=== PATIENT | female | born 1945 | race Caucasian/White ===

== ENCOUNTER → 2016-12-24 | Outpatient (CLI) | payer MEDICARE, OTHER ==
[~2016-12-24] MED LIST: ACET325T14 PO; ALPRazolam 1MG TABLET ONE; BISA-49 PO; BISA10SU65 PR; CALC-112 PO; CALC-666 PO; CHOL10003 PO; CHOL2000 PO; CYAN100T PO; DOCU-30 PO; ERGO500017 PO; FERR220S14 PO/NG; FERR325T20 PO; FURO20TA3 PO; FURO80TA3 PO; FURO80TA77 PO; HYDR-3138 PO; HYDR-3342 PO; HYDR-3343 PO; HYDR200T5 PO; HYDR25TA6 PO; LOSA25TA2 PO; LOSA50TA2 PO; METO25TA35 PO; METO50TA82 PO; METR500T PO; MULT-257 PO; MULT-750 PO; MYCO500T3 PO; OMEP-110 PO; OXYC5TAB3 PO; POLY17PO5 PO; POTA20TA14 PO; PRED20TA PO; PREG150C PO; RANI150T4 PO; SENN1TAB7 PO; SIMV20TA3 PO; SPIR50TA2 PO; SULF1TAB24 PO; WARF2.5T73 PO; WARF2TAB PO; WARF5TAB PO; ZOLP5TAB6 PO; potassium PO
== END | disposition home or self-care (01) ==
LOC: CFH 12:08
PROVIDERS: ATTEND Pain Medicine Interventional Pain Medicine
DX: M41.86 Other forms of scoliosis, lumbar region (principal); M47.22 Other spondylosis with radiculopathy, cervical region; M51.16 Intervertebral disc disorders with radiculopathy, lumbar region; M51.14 Intervertebral disc disorders with radiculopathy, thoracic region; G89.29 Other chronic pain
CPT/HCPCS: 72141; 72146; 72148

== ENCOUNTER 2016-12-29 10:55 | Inpatient (IN) | payer MEDICARE, OTHER ==
[~2016-12-29] VITALS: Ht 162.6 cm; Wt 63.0 kg
[~2016-12-29 10:55] MED LIST changes: -ALPRazolam 1MG TABLET ONE
[2016-12-29] MEDS ORDERED: SODIUM CHLORIDE FLUSH 10ML SYR IVF ONE (11:00)
[2016-12-29] MEDS ORDERED: SIMV10TA3 PO (11:08)
[2016-12-29 11:26] LABS: HEMATOCRIT 33.6 % (34.6-47.8); HEMOGLOBIN 10.9 g/dL (11.7-16.4)
[2016-12-29 11:39] LABS: DAU SCREEN DISCLAIMER
[2016-12-29 11:51] LABS: ASPARTATE AMINO TRANSFERASE 11 U/L (15-37); BLOOD UREA NITROGEN 29 mg/dL (7-18)
[2016-12-29 12:14] LABS: IS PT STATUS REG ER OR PRE ER? YES
[2016-12-29] MEDS ORDERED: LEVOFLOXACIN ONE (13:27)
[2016-12-29] MEDS ORDERED: PMX ONE (13:27)
[2016-12-29] MEDS ORDERED: LEVOFLOXACIN/PMX 500MG/100ML 100 ML IV ONE (13:30)
[2016-12-29] MEDS ORDERED: SODIUM CHLORIDE 0.9% 1,000 ML IV SCH (14:49)
[2016-12-29] MEDS ORDERED: ONDANSETRON ODT 4 MG PO PRN (15:00)
[2016-12-29] MEDS ORDERED: DOCUSATE 100 MG CAPSULE PO PRN (15:00)
[2016-12-29] MEDS ORDERED: ACETAMINOPHEN 325 MG TABLET PO PRN (15:00)
[2016-12-29] MEDS ORDERED: BISACODYL 10 MG SUPP PR PRN (15:00)
[2016-12-29] MEDS ORDERED: ONDANSETRON 2MG/ML, 2ML IVPush PRN (15:00)
[2016-12-29] MEDS ORDERED: NS + 40MEQ KCL 1,000 ML IV SCH (15:30)
[2016-12-29 17:40] VITALS: BP 191/94
[2016-12-29] MEDS: hydrALAzine 20 MG/ML, 1ML IVPush PRN ×2 (17:40→23:47)
[2016-12-29 18:16] VITALS: BP 182/85
[2016-12-29 20:00] VITALS: BP 172/103
[2016-12-29] MEDS: CALCIUM CARBONATE 500 MG TABLET PO SCH (20:39)
[2016-12-29] MEDS: SIMVASTATIN 10 MG TABLET PO SCH (20:39)
[2016-12-29] MEDS: PREGABALIN 150 MG CAPSULE PO SCH (20:39)
[2016-12-29] MEDS: METOPROLOL TARTRATE 50 MG TABLET PO SCH (20:39)
[2016-12-29] MEDS: HYDROXYCHLOROQUINE 200 MG TABLET PO SCH (20:39)
[2016-12-29] MEDS: POTASSIUM CHLORIDE 40 MEQ in SODIUM CHLORIDE 0.45% 1,000 ML IV SCH (20:40)
[2016-12-29] MEDS: HEPARIN 5,000 UNITS/ML, 1ML SQ SCH (20:40)
[2016-12-29] MEDS ORDERED: FAMOTIDINE 20 MG TABLET PO SCH (21:00)
[2016-12-29 23:40] VITALS: BP 178/96
[2016-12-30 01:51] VITALS: BP 164/78
[2016-12-30] MEDS: HEPARIN 5,000 UNITS/ML, 1ML SQ SCH ×3 (05:10→21:34)
[2016-12-30 05:37] LABS: HEMATOCRIT 33.3 % (34.6-47.8); WHITE BLOOD COUNT 6.5 x10^3/uL (3.4-10)
[2016-12-30 05:57] LABS: BLOOD UREA NITROGEN 32 mg/dL (7-18)
[2016-12-30] MEDS: POTASSIUM CHLORIDE 40 MEQ in SODIUM CHLORIDE 0.45% 1,000 ML IV SCH ×2 (06:23→17:35)
[2016-12-30 09:27] VITALS: BP 174/95
[2016-12-30] MEDS ORDERED: CIPROFLOXACIN/PMX 400MG/200ML 200 ML IV SCH (10:00)
[2016-12-30] MEDS: CALCIUM CARBONATE 500 MG TABLET PO SCH ×2 (10:25→21:33)
[2016-12-30] MEDS: FAMOTIDINE 20 MG TABLET PO SCH (10:25)
[2016-12-30] MEDS: PREGABALIN 150 MG CAPSULE PO SCH ×2 (10:25→21:32)
[2016-12-30] MEDS: HYDROXYCHLOROQUINE 200 MG TABLET PO SCH ×2 (10:25→21:30)
[2016-12-30] MEDS: CHOLECALCIFEROL 1,000 UNIT TABLET PO SCH (10:26)
[2016-12-30] MEDS: FERROUS SULFATE 325 MG TABLET PO SCH (10:26)
[2016-12-30] MEDS: METOPROLOL TARTRATE 50 MG TABLET PO SCH ×2 (10:26→21:27)
[2016-12-30 14:54] VITALS: BP 184/96
[2016-12-30 20:23] VITALS: BP 175/73
[2016-12-30] MEDS: SIMVASTATIN 10 MG TABLET PO SCH (21:29)
[2016-12-31 01:35] VITALS: BP 175/73
[2016-12-31] MEDS: hydrALAzine 20 MG/ML, 1ML IVPush PRN (01:36)
[2016-12-31] MEDS: POTASSIUM CHLORIDE 40 MEQ in SODIUM CHLORIDE 0.45% 1,000 ML IV SCH (02:35)
[2016-12-31] MEDS: HEPARIN 5,000 UNITS/ML, 1ML SQ SCH ×3 (05:35→22:52)
[2016-12-31 08:03] VITALS: BP 167/79
[2016-12-31 09:14] LABS: BLOOD UREA NITROGEN 29 mg/dL (7-18)
[2016-12-31] MEDS: PREGABALIN 150 MG CAPSULE PO SCH ×2 (09:35→22:52)
[2016-12-31] MEDS: CHOLECALCIFEROL 1,000 UNIT TABLET PO SCH (09:37)
[2016-12-31] MEDS: METOPROLOL TARTRATE 50 MG TABLET PO SCH ×2 (09:37→22:52)
[2016-12-31] MEDS: FERROUS SULFATE 325 MG TABLET PO SCH (09:38)
[2016-12-31] MEDS: FAMOTIDINE 20 MG TABLET PO SCH (09:38)
[2016-12-31] MEDS: HYDROXYCHLOROQUINE 200 MG TABLET PO SCH ×2 (09:38→22:52)
[2016-12-31] MEDS: CALCIUM CARBONATE 500 MG TABLET PO SCH ×2 (09:38→22:52)
[2016-12-31] MEDS: CIPROFLOXACIN 500 MG TABLET PO SCH (10:00)
[2016-12-31] MEDS ORDERED: PHARMACY MAY ADJ FOR RENAL FX MC PRN (10:00)
[2016-12-31 13:46] VITALS: BP 169/79
[2016-12-31 22:50] VITALS: BP 145/93
[2016-12-31] MEDS: SIMVASTATIN 10 MG TABLET PO SCH (22:52)
[2017-01-01 00:58] VITALS: BP 150/94
[2017-01-01 05:54] LABS: BLOOD UREA NITROGEN 26 mg/dL (7-18)
[2017-01-01 07:12] VITALS: BP 173/90
[2017-01-01] MEDS: FERROUS SULFATE 325 MG TABLET PO SCH (09:00)
[2017-01-01] MEDS: HEPARIN 5,000 UNITS/ML, 1ML SQ SCH ×2 (09:21→17:23)
[2017-01-01] MEDS: CHOLECALCIFEROL 1,000 UNIT TABLET PO SCH (09:22)
[2017-01-01] MEDS: METOPROLOL TARTRATE 50 MG TABLET PO SCH ×2 (09:22→22:57)
[2017-01-01] MEDS: FAMOTIDINE 20 MG TABLET PO SCH (09:22)
[2017-01-01] MEDS: CIPROFLOXACIN 500 MG TABLET PO SCH (09:22)
[2017-01-01] MEDS: PREGABALIN 150 MG CAPSULE PO SCH ×2 (09:22→22:56)
[2017-01-01] MEDS: CALCIUM CARBONATE 500 MG TABLET PO SCH ×2 (09:23→22:56)
[2017-01-01] MEDS: HYDROXYCHLOROQUINE 200 MG TABLET PO SCH ×2 (09:23→22:57)
[2017-01-01 13:07] VITALS: BP 141/88
[2017-01-01 18:27] VITALS: BP 160/69
[2017-01-01] MEDS: SIMVASTATIN 10 MG TABLET PO SCH (22:57)
[2017-01-02 00:46] VITALS: BP 150/70
[2017-01-02] MEDS: HEPARIN 5,000 UNITS/ML, 1ML SQ SCH ×2 (01:45→09:16)
[2017-01-02 06:26] LABS: BLOOD UREA NITROGEN 27 mg/dL (7-18)
[2017-01-02 07:45] VITALS: BP 157/97
[2017-01-02] MEDS: METOPROLOL TARTRATE 50 MG TABLET PO SCH (09:16)
[2017-01-02] MEDS: CALCIUM CARBONATE 500 MG TABLET PO SCH (09:16)
[2017-01-02] MEDS: PREGABALIN 150 MG CAPSULE PO SCH (09:16)
[2017-01-02] MEDS: CIPROFLOXACIN 500 MG TABLET PO SCH (09:16)
[2017-01-02] MEDS: HYDROXYCHLOROQUINE 200 MG TABLET PO SCH (09:16)
[2017-01-02] MEDS: FERROUS SULFATE 325 MG TABLET PO SCH (09:16)
[2017-01-02] MEDS: FAMOTIDINE 20 MG TABLET PO SCH (09:16)
[2017-01-02] MEDS: CHOLECALCIFEROL 1,000 UNIT TABLET PO SCH (09:17)
[2017-01-02] MEDS ORDERED: CIPR500T87 PO (12:53)
== END 2017-01-02 15:00 | DRG 70 ==
LOC: ED 13:19 → EDIP 13:20 → ED 13:40 → 4EST 15:56
PROVIDERS: ADMIT Internal Medicine; ATTEND Internal Medicine
DX: G93.41 Metabolic encephalopathy (principal); J15.0 Pneumonia due to Klebsiella pneumoniae; N17.0 Acute kidney failure with tubular necrosis; N39.0 Urinary tract infection, site not specified; E87.0 Hyperosmolality and hypernatremia; E87.2 Acidosis; E78.5 Hyperlipidemia, unspecified; E87.6 Hypokalemia; E87.8 Other disorders of electrolyte and fluid balance, not elsewhere classified; I12.9 Hypertensive chronic kidney disease with stage 1 through stage 4 chronic kidney disease, or unspecified chronic kidney disease; K21.9 Gastro-esophageal reflux disease without esophagitis; M32.9 Systemic lupus erythematosus, unspecified; M79.7 Fibromyalgia; R26.2 Difficulty in walking, not elsewhere classified; Z86.718 Personal history of other venous thrombosis and embolism; Z90.710 Acquired absence of both cervix and uterus; Z88.6 Allergy status to analgesic agent; Z88.1 Allergy status to other antibiotic agents; Z88.0 Allergy status to penicillin; Z88.2 Allergy status to sulfonamides; Z91.018 Allergy to other foods
CPT/HCPCS: 36415; 70450; 71010; 80048; 80053; 80164; 80307; 81001; 82140; 84484; 85025; 87077; 87086; 87186; 93005; 96365; 96375; J0744; J1644; J1956; J2405; J3480; J0360; J7517

== ENCOUNTER 2018-08-23 09:27 | Inpatient (IN) | payer MEDICARE, OTHER ==
[~2018-08-23] VITALS: Ht 162.6 cm; Wt 67.5 kg
[~2018-08-23 09:27] MED LIST changes: +CIPR500T87 PO; +DOCU-131 PO; -DOCU-30 PO; +FERR325T18 PO; -FERR325T20 PO; -HYDR-3138 PO; +HYDR-3237 PO; +SENN-177 PO; -SENN1TAB7 PO; +SIMV10TA3 PO; -SPIR50TA2 PO; +SPIR50TA4 PO; +WARF2.5T32 PO; -WARF2.5T73 PO
--- NOTE | 2018-08-23 09:57 | NUR ---
PT TO ROOM FROM LOBBY
--- NOTE | 2018-08-23 10:00 | NUR ---
Pt states sent over from [facility] to r/o DVT. Pt states R Ankle swelling x2 weeks, no known injury. Pt denies pain, CMS intact +2 dp pulse, reports hx of dvt. Not on any blood thinners at this time
--- NOTE | 2018-08-23 10:36 | NUR ---
US AT BEDSIDE
--- NOTE | 2018-08-23 10:48 | NUR ---
med recc updated. patient has not taken any of her medications today
[2018-08-23 10:55] LABS: ALANINE AMINOTRANSFERASE 12 U/L (12-78); ALBUMIN 3.6 g/dL (3.4-5.0); ANION GAP 11 mmol/L (5-15); CALCIUM 9.9 mg/dL (8.5-10.1); CHLORIDE 112 mmol/L (98-107); CREATININE 3.21 mg/dL (0.55-1.02); MEAN CORPUSCULAR HGB CONC 32.7 g/dL (32.4-35.8); MEAN CORPUSCULAR VOLUME 91.7 fL (80-100); RED BLOOD COUNT 3.01 x10^6/uL (3.82-5.3); RED CELL DISTRIBUTION WIDTH 16.4 % (9.6-15.2)
[2018-08-23 10:57] LABS: INTERNATIONAL NORMALIZED RATIO 1.1 (0.93-1.1); PROTHROMBIN TIME 11.5 Seconds (9.6-11.5)
[2018-08-23 10:59] LABS: ALKALINE PHOSPHATASE 40 U/L (45-117); BILIRUBIN,TOTAL 0.5 mg/dL (0.2-1.0); TOTAL PROTEIN 5.7 g/dL (6.4-8.2)
[2018-08-23 11:37] LABS: MD MORPH REVIEW ONLY; MEAN PLATELET VOLUME 11.1 fL (7.4-10.4); PLATELET COUNT 77 x10^3/uL (130-400)
[2018-08-23 11:38] LABS: <PLATELET ESTIMATE> DECREASED; LARGE PLATELETS 1+; TEAR DROPS 1+
[2018-08-23 11:39] LABS: ACANTHOCYTES 1+; ANISOCYTOSIS 1+; OVALOCYTES 1+
[2018-08-23] MEDS ORDERED: HEPARIN 5,000 UNITS/ML, 1ML IV PRN (12:00)
[2018-08-23] MEDS ORDERED: SODIUM CHLORIDE 0.9% 1,000ML IVBOLUS ONE (12:00)
[2018-08-23] MEDS ORDERED: HEPARIN 5,000 UNITS/ML, 1ML IV ONE (12:00)
[2018-08-23] MEDS ORDERED: HEPARIN 25,000 UNITS/500ML PMX 500 ML IV PRN ×2 (12:00→21:30)
[2018-08-23] MEDS ORDERED: HEPARIN 25,000 UNITS/500ML PMX 500 ML ONE (12:35)
[2018-08-23] MEDS ORDERED: HEPARIN 5,000 UNITS/ML, 1ML ONE (12:35)
--- NOTE | 2018-08-23 12:50 | NUR ---
AFTER VERIFICATION THAT PREHEPARIN DRIP LABS HAD BE COLLECTED: AND JOANNE KOENIG GAVE HEPARIN BOLUS IV THEN STARTED HEPARIN DRIP FOR DVT. PATIENT UPDATED ON INDICATION AND PRECAUTIONS-REPORTS PRIOR NEED FOR ANTI Addendum: 08/23/18 at 1305 by RFRUHLING CONTINUED ANTICOAGULANTS. VSS. GIVEN ADDITIONAL BLANKET AND UPDATED ON ESTIMATED POC
--- NOTE | 2018-08-23 13:33 | NUR ---
PATIENT UP TO COMMODE. REQUIRED MINIMAL ASSITANCE. SMALL AMOUNT OF URINE WHICH WAS CONTAMINATED W/ DIARRHEA. THROUGHPUT RN MADE AWARE OF PATIENT'S DIARRHEA FOR THE LAST WEEK (7DAYS). HEPARIN INFUSING W/OUT DIFFICULTY. PATIENT DENIES COMPLAINTS. NEPHROLOGY AT BEDSIDE-VERBALIZED PERMISSION TO ORDER PATIENT A DIET
--- NOTE | 2018-08-23 14:37 | NUR ---
PATIENT EATING LATE LUNCH. CONTINUES TO DENY COMPLAINTS. HEAPRIN INFUSING W/OUT DIFFICULTY. 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 RESTING ON GURNEY W/ CALL MONGE IN HAND/SIDE RAILS UP ATTEMPTED TO CALL REPORT TO JACINTA KOENIG AT 1435P AT EXT [phone]. RN TO CALL SEARCH CONSULTANT BACK SHORTLY
[2018-08-23] MEDS ORDERED: hydrALAzine 20 MG/ML, 1ML IVPush PRN (15:00)
[2018-08-23] MEDS ORDERED: BISACODYL 10 MG SUPP PR PRN ×2 (15:00→19:30)
[2018-08-23] MEDS ORDERED: ONDANSETRON ODT 4 MG PO PRN (15:00)
[2018-08-23] MEDS ORDERED: GUAIFENESIN/DM 200-20MG, 10ML UDC PO PRN (15:00)
[2018-08-23] MEDS ORDERED: POLYETHYLENE GLYCOL 17 GM PACKET PO PRN (15:00)
[2018-08-23] MEDS ORDERED: LIDODERM 5% PATCH TD PRN (15:00)
[2018-08-23] MEDS ORDERED: DOCUSATE 100 MG CAPSULE PO PRN (15:00)
[2018-08-23 15:12] LABS: CLOSTRIDIUM DIFFICILE ANTIGEN NEGATIVE; CLOSTRIDIUM DIFFICILE TOXIN NEGATIVE (Negative)
[2018-08-23 16:30] VITALS: BP 119/75
[2018-08-23 16:46] LABS: CHLORIDE,URINE RANDOM 38 mmol/L; MICROSCOPIC INDICATED; POTASSIUM,URINE RANDOM 44 mmol/L; SODIUM,URINE RANDOM 35 mmol/L
[2018-08-23] MEDS ORDERED: FURO40TA6 PO (18:08)
[2018-08-23] MEDS ORDERED: PREG50CA PO (18:10)
[2018-08-23] MEDS ORDERED: LOPE2CAP PO (18:12)
[2018-08-23] MEDS ORDERED: POTA20TA37 PO (18:15)
[2018-08-23] MEDS ORDERED: ERGO500018 PO (18:19)
[2018-08-23] MEDS ORDERED: ERGOCALCIFEROL 50,000 UNIT CAPSULE PO SCH (19:30)
[2018-08-23] MEDS ORDERED: SODIUM CHLORIDE 0.9% 1,000 ML IV SCH ×2 (19:30)
[2018-08-23] MEDS ORDERED: LOPERAMIDE 2 MG CAPSULE PO PRN (19:30)
[2018-08-23] MEDS ORDERED: PRED5TAB PO (19:31)
[2018-08-23 20:00] VITALS: BP 103/58
[2018-08-23] MEDS: PREGABALIN 150 MG CAPSULE PO SCH (21:13)
[2018-08-23] MEDS: CALCIUM CARBONATE 500 MG TABLET PO SCH (21:13)
[2018-08-23] MEDS: CALCIUM/VITAMIN D3 250-125 TABLET PO SCH (21:13)
[2018-08-23] MEDS: FAMOTIDINE 20 MG TABLET PO SCH (21:13)
[2018-08-23] MEDS: METOPROLOL TARTRATE 50 MG TABLET PO SCH (21:21)
[2018-08-23] MEDS: SIMVASTATIN 10 MG TABLET PO SCH (21:21)
[2018-08-23] MEDS: PREGABALIN 25 MG CAPSULE PO SCH (21:21)
[2018-08-24 02:00] VITALS: BP 113/74
[2018-08-24 02:17] LABS: MEAN CORPUSCULAR HEMOGLOBIN 29.2 pg (27.0-34.8); MEAN CORPUSCULAR HGB CONC 31.9 g/dL (32.4-35.8); MEAN CORPUSCULAR VOLUME 91.4 fL (80-100); MEAN PLATELET VOLUME 11.7 fL (7.4-10.4); PLATELET COUNT 74 x10^3/uL (130-400); RED BLOOD COUNT 2.61 x10^6/uL (3.82-5.3); RED CELL DISTRIBUTION WIDTH 16.9 % (9.6-15.2)
[2018-08-24 02:20] LABS: ANION GAP 13 mmol/L (5-15); CHLORIDE 114 mmol/L (98-107); CREATININE 3.18 mg/dL (0.55-1.02)
[2018-08-24 02:37] LABS: BASOPHILS # (AUTO) 0.03 x10^3/uL (0-0.1); BASOPHILS % (AUTO) 0 % (0-1); EOSINOPHILS # (AUTO) 0.06 x10^3/uL (0-0.4); EOSINOPHILS % (AUTO) 1 % (1-7); LYMPHOCYTES # (AUTO) 1.76 x10^3/uL (1-3.4); LYMPHOCYTES % (AUTO) 26 % (22-44); MD SCAN; MONOCYTES # (AUTO) 0.54 x10^3/uL (0.2-0.8); MONOCYTES % (AUTO) 8 % (2-9); NEUTROPHILS # (AUTO) 4.39 x10^3/uL (1.8-6.8); NEUTROPHILS % (AUTO) 65 % (42-75)
[2018-08-24 07:24] VITALS: BP 131/78
[2018-08-24] MEDS: PREGABALIN 150 MG CAPSULE PO SCH ×2 (08:47→21:14)
[2018-08-24] MEDS: CALCIUM/VITAMIN D3 250-125 TABLET PO SCH (08:47)
[2018-08-24] MEDS: CALCIUM CARBONATE 500 MG TABLET PO SCH ×2 (08:48→21:14)
[2018-08-24] MEDS: METOPROLOL TARTRATE 50 MG TABLET PO SCH ×2 (08:48→21:14)
[2018-08-24] MEDS: FAMOTIDINE 20 MG TABLET PO SCH (08:49)
[2018-08-24] MEDS: FERROUS SULFATE 325 MG TABLET PO SCH (08:49)
[2018-08-24] MEDS ORDERED: POTASSIUM CHLORIDE 20 MEQ TAB.ER.PRT PO ONE (11:30)
[2018-08-24] MEDS ORDERED: MAGNESIUM SULFATE PMX 2GM/50ML 50 ML IV ONE (11:30)
[2018-08-24 12:30] VITALS: BP 123/80
[2018-08-24 19:12] VITALS: BP 109/70
[2018-08-24] MEDS: PREGABALIN 25 MG CAPSULE PO SCH (21:14)
[2018-08-24] MEDS: SIMVASTATIN 10 MG TABLET PO SCH (21:15)
[2018-08-25 01:29] VITALS: BP 95/60
[2018-08-25 01:55] VITALS: BP 145/80
[2018-08-25 05:14] LABS: ALANINE AMINOTRANSFERASE 13 U/L (12-78); ALBUMIN 2.8 g/dL (3.4-5.0); ANION GAP 10 mmol/L (5-15); CALCIUM 9.5 mg/dL (8.5-10.1); CHLORIDE 120 mmol/L (98-107)
[2018-08-25 05:16] LABS: MEAN CORPUSCULAR HEMOGLOBIN 30.1 pg (27.0-34.8); MEAN CORPUSCULAR HGB CONC 32.5 g/dL (32.4-35.8); MEAN CORPUSCULAR VOLUME 92.5 fL (80-100); RED BLOOD COUNT 2.35 x10^6/uL (3.82-5.3); RED CELL DISTRIBUTION WIDTH 16.1 % (9.6-15.2)
[2018-08-25 05:17] LABS: ALKALINE PHOSPHATASE 32 U/L (45-117); BILIRUBIN,TOTAL 0.6 mg/dL (0.2-1.0); CREATININE 2.85 mg/dL (0.55-1.02); TOTAL PROTEIN 4.5 g/dL (6.4-8.2)
[2018-08-25 05:40] VITALS: BP 105/66
[2018-08-25 05:55] LABS: BASOPHILS # (AUTO) 0.01 x10^3/uL (0-0.1); BASOPHILS % (AUTO) 0 % (0-1); EOSINOPHILS # (AUTO) 0.13 x10^3/uL (0-0.4); EOSINOPHILS % (AUTO) 2 % (1-7); LYMPHOCYTES # (AUTO) 1.11 x10^3/uL (1-3.4); LYMPHOCYTES % (AUTO) 21 % (22-44); MD SCAN; MEAN PLATELET VOLUME 11.4 fL (7.4-10.4); MONOCYTES # (AUTO) 0.44 x10^3/uL (0.2-0.8); MONOCYTES % (AUTO) 8 % (2-9); NEUTROPHILS # (AUTO) 3.69 x10^3/uL (1.8-6.8); NEUTROPHILS % (AUTO) 69 % (42-75); PLATELET COUNT 72 x10^3/uL (130-400)
[2018-08-25 06:56] VITALS: BP 138/80
[2018-08-25 07:35] LABS: OCCULT BLOOD POSITIVE (NEGATIVE)
[2018-08-25] MEDS: ACETAMINOPHEN 325 MG TABLET PO PRN (09:53)
[2018-08-25] MEDS: METOPROLOL TARTRATE 50 MG TABLET PO SCH ×2 (09:53→20:22)
[2018-08-25] MEDS: PREGABALIN 150 MG CAPSULE PO SCH ×2 (09:53→20:22)
[2018-08-25] MEDS: FERROUS SULFATE 325 MG TABLET PO SCH (09:53)
[2018-08-25] MEDS: CALCIUM CARBONATE 500 MG TABLET PO SCH ×2 (09:53→20:22)
[2018-08-25] MEDS: FAMOTIDINE 20 MG TABLET PO SCH (09:54)
[2018-08-25 10:36] LABS: MD YES; MEAN CORPUSCULAR HEMOGLOBIN 29.3 pg (27.0-34.8); MEAN CORPUSCULAR HGB CONC 31.6 g/dL (32.4-35.8); MEAN CORPUSCULAR VOLUME 92.7 fL (80-100); MEAN PLATELET VOLUME 11.3 fL (7.4-10.4); PLATELET COUNT 82 x10^3/uL (130-400); RED BLOOD COUNT 2.72 x10^6/uL (3.82-5.3); RED CELL DISTRIBUTION WIDTH 17.4 % (9.6-15.2)
[2018-08-25 10:38] LABS: ANISOCYTOSIS 1+; BAND#(MANUAL) 0.31 x10^3/uL; BANDS%(MANUAL) 5 % (0-7); EOS#(MANUAL) 0.06 x10^3/uL (0.0-0.4); EOS% (MANUAL) 1 % (1-7); LYMPH#(MANUAL) 1.43 x10^3/uL (1-3.4); LYMPHS% (MANUAL) 23 % (22-44); METAMYELOCYTES# (MANUAL) 0.19 x10^3/uL (0-0); METAMYELOCYTES% (MANUAL) 3 % (0-1); MONOS#(MANUAL) 0.19 x10^3/uL (0.3-2.7); MONOS% (MANUAL) 3 % (2-9); OVALOCYTES 1+; SEG#(MANUAL) 4.03 x10^3/uL (1.8-6.8); SEGS% (MANUAL) 65 % (42-75)
[2018-08-25 10:39] LABS: <PLATELET ESTIMATE> DECREASED; <PLT MORPHOLOGY> NORMAL PLT MORPH; ECHINOCYTES 1+; SCHISTOCYTES 1+; TEAR DROPS 1+
[2018-08-25 12:50] VITALS: BP 128/77
[2018-08-25 19:11] VITALS: BP 119/73
[2018-08-25] MEDS: PREGABALIN 25 MG CAPSULE PO SCH (20:22)
[2018-08-25] MEDS: SIMVASTATIN 10 MG TABLET PO SCH (20:22)
[2018-08-26] VITALS (8 sets, daily range): BP systolic 117–157; BP diastolic 69–88
[2018-08-26 05:29] LABS: ALBUMIN 2.9 g/dL (3.4-5.0); ANION GAP 8 mmol/L (5-15); CALCIUM 9.7 mg/dL (8.5-10.1); CHLORIDE 119 mmol/L (98-107)
[2018-08-26 05:33] LABS: ALANINE AMINOTRANSFERASE 11 U/L (12-78); ALKALINE PHOSPHATASE 33 U/L (45-117); BILIRUBIN,TOTAL 0.4 mg/dL (0.2-1.0); CREATININE 2.85 mg/dL (0.55-1.02); TOTAL PROTEIN 4.6 g/dL (6.4-8.2)
[2018-08-26 06:18] LABS: MEAN CORPUSCULAR HEMOGLOBIN 29.6 pg (27.0-34.8); MEAN CORPUSCULAR HGB CONC 32.7 g/dL (32.4-35.8); MEAN CORPUSCULAR VOLUME 90.5 fL (80-100); MEAN PLATELET VOLUME 10.3 fL (7.4-10.4); PLATELET COUNT 71 x10^3/uL (130-400); RED BLOOD COUNT 2.38 x10^6/uL (3.82-5.3); RED CELL DISTRIBUTION WIDTH 16.3 % (9.6-15.2)
[2018-08-26 06:57] LABS: ACANTHOCYTES 1+; ANISOCYTOSIS 1+; BASOPHILS # (AUTO) 0.02 x10^3/uL (0-0.1); BASOPHILS % (AUTO) 0 % (0-1); EOSINOPHILS # (AUTO) 0.03 x10^3/uL (0-0.4); EOSINOPHILS % (AUTO) 1 % (1-7); LYMPHOCYTES # (AUTO) 0.75 x10^3/uL (1-3.4); LYMPHOCYTES % (AUTO) 17 % (22-44); MD MORPH REVIEW ONLY; MONOCYTES # (AUTO) 0.36 x10^3/uL (0.2-0.8); MONOCYTES % (AUTO) 8 % (2-9); NEUTROPHILS # (AUTO) 3.34 x10^3/uL (1.8-6.8); NEUTROPHILS % (AUTO) 74 % (42-75); TEAR DROPS 1+
[2018-08-26 06:58] LABS: ECHINOCYTES 1+; OVALOCYTES 1+; SCHISTOCYTES 1+
[2018-08-26 06:59] LABS: <PLATELET ESTIMATE> DECREASED; LARGE PLATELETS 1+
[2018-08-26] MEDS: CALCIUM CARBONATE 500 MG TABLET PO SCH ×2 (09:00→19:40)
[2018-08-26] MEDS: FERROUS SULFATE 325 MG TABLET PO SCH (09:00)
[2018-08-26] MEDS: METOPROLOL TARTRATE 50 MG TABLET PO SCH ×2 (09:00→19:41)
[2018-08-26] MEDS: PREGABALIN 150 MG CAPSULE PO SCH ×2 (09:00→19:41)
[2018-08-26] MEDS: FAMOTIDINE 20 MG TABLET PO SCH (09:00)
[2018-08-26] MEDS ORDERED: PROPOFOL 10 MG/ML, 20ML ONE (10:38)
[2018-08-26] MEDS ORDERED: SUCCINYLCHOLINE 20 MG/ML, 10ML ONE (10:38)
[2018-08-26] MEDS ORDERED: MOVIPREP POWDER 1 PREP KIT PO SCH (18:00)
[2018-08-26] MEDS: PREGABALIN 25 MG CAPSULE PO SCH (19:41)
[2018-08-26] MEDS: SIMVASTATIN 10 MG TABLET PO SCH (19:41)
[2018-08-27 00:30] VITALS: BP 106/81
[2018-08-27 05:46] LABS: CHLORIDE 122 mmol/L (98-107)
[2018-08-27 05:50] LABS: ANION GAP 9 mmol/L (5-15); CALCIUM 10.4 mg/dL (8.5-10.1); CREATININE 2.68 mg/dL (0.55-1.02)
[2018-08-27 07:11] VITALS: BP 110/79
[2018-08-27] MEDS ORDERED: HYDROmorphone 2 MG/ML, 1ML IVPush PRN (08:30)
[2018-08-27] MEDS ORDERED: FENTANYL PF 100 MCG/2ML IV PRN (08:30)
[2018-08-27] MEDS ORDERED: LABETALOL 5MG/ML, 20ML IV PRN (08:30)
[2018-08-27] MEDS ORDERED: ONDANSETRON 2MG/ML, 2ML IV PRN (08:30)
[2018-08-27] MEDS ORDERED: hydrALAzine 20 MG/ML, 1ML IV PRN (08:30)
[2018-08-27] MEDS ORDERED: PROPOFOL 10 MG/ML, 20ML ONE (10:07)
[2018-08-27] MEDS: CALCIUM CARBONATE 500 MG TABLET PO SCH ×2 (13:00→19:54)
[2018-08-27] MEDS: METOPROLOL TARTRATE 50 MG TABLET PO SCH ×2 (13:00→19:53)
[2018-08-27] MEDS: PREGABALIN 150 MG CAPSULE PO SCH ×2 (13:01→19:54)
[2018-08-27] MEDS: FERROUS SULFATE 325 MG TABLET PO SCH (13:01)
[2018-08-27] MEDS: FAMOTIDINE 20 MG TABLET PO SCH (13:01)
[2018-08-27] MEDS: ACETAMINOPHEN 325 MG TABLET PO PRN (13:03)
[2018-08-27 14:18] VITALS: BP 114/74
[2018-08-27] MEDS ORDERED: DEXTROSE 50%, 50ML SYRINGE IVPush PRN (18:30)
[2018-08-27] MEDS ORDERED: DEXTROSE 4 GM TAB.CHEW PO PRN (18:30)
[2018-08-27] MEDS ORDERED: GLUCAGON 1 MG IM PRN (18:30)
[2018-08-27 19:14] VITALS: BP 153/85
[2018-08-27] MEDS: DEXTROSE 5% 1,000 ML IV SCH (19:28)
[2018-08-27] MEDS: SIMVASTATIN 10 MG TABLET PO SCH (19:54)
[2018-08-27] MEDS: PREGABALIN 25 MG CAPSULE PO SCH (19:54)
[2018-08-27] MEDS: SODIUM CHLORIDE FLUSH 10ML SYR IVF SCH (19:54)
[2018-08-27] MEDS: INSULIN LISPRO 100 UNITS/ML, PEN SQ-INSULIN SCH (19:59)
[2018-08-28 00:24] VITALS: BP 173/81
[2018-08-28] MEDS: DEXTROSE 5% 1,000 ML IV SCH (03:00)
[2018-08-28 05:43] LABS: CHLORIDE 117 mmol/L (98-107)
[2018-08-28 05:47] LABS: ANION GAP 9 mmol/L (5-15); CALCIUM 10.1 mg/dL (8.5-10.1); CREATININE 2.56 mg/dL (0.55-1.02)
[2018-08-28 05:52] LABS: MEAN CORPUSCULAR HEMOGLOBIN 30.1 pg (27.0-34.8); MEAN CORPUSCULAR HGB CONC 33.2 g/dL (32.4-35.8); MEAN CORPUSCULAR VOLUME 90.8 fL (80-100); MEAN PLATELET VOLUME 10.9 fL (7.4-10.4); PLATELET COUNT 64 x10^3/uL (130-400); RED BLOOD COUNT 3.05 x10^6/uL (3.82-5.3); RED CELL DISTRIBUTION WIDTH 16.2 % (9.6-15.2)
[2018-08-28 06:30] LABS: MD YES
[2018-08-28 06:34] LABS: BAND#(MANUAL) 0.24 x10^3/uL; BANDS%(MANUAL) 5 % (0-7); LYMPH#(MANUAL) 0.34 x10^3/uL (1-3.4); LYMPHS% (MANUAL) 7 % (22-44); MONOS#(MANUAL) 0.34 x10^3/uL (0.3-2.7); MONOS% (MANUAL) 7 % (2-9); MYELOCYTES# (MANUAL) 0.05 x10^3/uL (0-0); MYELOCYTES% (MANUAL) 1 % (0-0); SEG#(MANUAL) 3.84 x10^3/uL (1.8-6.8); SEGS% (MANUAL) 80 % (42-75)
[2018-08-28 06:35] LABS: <PLATELET ESTIMATE> DECREASED; <PLT MORPHOLOGY> NORMAL PLT MORPH; ACANTHOCYTES 1+; ANISOCYTOSIS 1+; ECHINOCYTES 1+; OVALOCYTES 1+; SCHISTOCYTES 1+; TEAR DROPS 1+
[2018-08-28] MEDS: INSULIN LISPRO 100 UNITS/ML, PEN SQ-INSULIN SCH ×3 (07:00→16:00)
[2018-08-28 08:19] VITALS: BP 169/78
[2018-08-28] MEDS: CALCIUM CARBONATE 500 MG TABLET PO SCH (09:00)
[2018-08-28] MEDS: PREGABALIN 150 MG CAPSULE PO SCH (09:00)
[2018-08-28] MEDS: FAMOTIDINE 20 MG TABLET PO SCH (09:00)
[2018-08-28] MEDS: SODIUM CHLORIDE FLUSH 10ML SYR IVF SCH (09:00)
[2018-08-28] MEDS: FERROUS SULFATE 325 MG TABLET PO SCH (09:00)
[2018-08-28] MEDS: METOPROLOL TARTRATE 50 MG TABLET PO SCH (09:43)
[2018-08-28] MEDS ORDERED: LIDOCAINE-MPF 1%, 5ML ONE (11:17)
[2018-08-28] MEDS ORDERED: VISIPAQUE 270 MG/ML, 50ML BOTTLE ONE (11:20)
[2018-08-28] MEDS ORDERED: FENTANYL PF 100 MCG/2ML ONE (11:25)
[2018-08-28] MEDS ORDERED: MIDAZOLAM 1 MG/ML, 5ML ONE (11:25)
[2018-08-28] MEDS ORDERED: POTASSIUM CHLORIDE 20 MEQ TAB.ER.PRT PO SCH (11:30)
[2018-08-28] MEDS ORDERED: POTA20TA6 PO (12:50)
[2018-08-28 13:01] VITALS: BP 138/76
== END 2018-08-28 17:38 | disposition home health service (06) | DRG 252 ==
LOC: ED 11:57 → EDIP 14:35 → 3NE 15:03
PROVIDERS: ADMIT Internal Medicine; ATTEND Internal Medicine
PROC: 30233N1 Transfusion of Nonautologous Red Blood Cells into Peripheral Vein, Percutaneous Approach (ICD-10-PCS; 2018-08-26)
PROC: 0DJ08ZZ Inspection of Upper Intestinal Tract, Via Natural or Artificial Opening Endoscopic (ICD-10-PCS; 2018-08-26)
PROC: 0DBK8ZZ Excision of Ascending Colon, Via Natural or Artificial Opening Endoscopic (ICD-10-PCS; 2018-08-27)
PROC: 06H03DZ Insertion of Intraluminal Device into Inferior Vena Cava, Percutaneous Approach (ICD-10-PCS; principal; 2018-08-28)
PROC: 0DBF8ZZ Excision of Right Large Intestine, Via Natural or Artificial Opening Endoscopic (ICD-10-PCS; 2018-08-28)
PROC: B51L1ZZ Fluoroscopy of Bilateral Renal Veins using Low Osmolar Contrast (ICD-10-PCS; 2018-08-28)
DX: I82.411 Acute embolism and thrombosis of right femoral vein (principal); N17.0 Acute kidney failure with tubular necrosis; K29.71 Gastritis, unspecified, with bleeding; E87.0 Hyperosmolality and hypernatremia; N18.4 Chronic kidney disease, stage 4 (severe); E46 Unspecified protein-calorie malnutrition; I82.431 Acute embolism and thrombosis of right popliteal vein; I82.441 Acute embolism and thrombosis of right tibial vein; D50.9 Iron deficiency anemia, unspecified; D63.1 Anemia in chronic kidney disease; E78.5 Hyperlipidemia, unspecified; E83.42 Hypomagnesemia; E87.6 Hypokalemia; I12.9 Hypertensive chronic kidney disease with stage 1 through stage 4 chronic kidney disease, or unspecified chronic kidney disease; K21.0 Gastro-esophageal reflux disease with esophagitis; M32.14 Glomerular disease in systemic lupus erythematosus; Z79.899 Other long term (current) drug therapy; M79.7 Fibromyalgia; Z82.3 Family history of stroke; Z86.718 Personal history of other venous thrombosis and embolism; Z90.710 Acquired absence of both cervix and uterus; Z68.25 Body mass index [BMI] 25.0-25.9, adult; Z88.6 Allergy status to analgesic agent; Z88.1 Allergy status to other antibiotic agents; Z88.0 Allergy status to penicillin; Z88.2 Allergy status to sulfonamides; K63.5 Polyp of colon
CPT/HCPCS: 36415; 37191; 70450; 71045; 76937; 80048; 80053; 80069; 81001; 82272; 82306; 82436; 82962; 83735; 83880; 83970; 84133; 84300; 85014; 85018; 85025; 85520; 85610; 85730; 86850; 86900; 86923; 87324; 88305; 93005; 96361; 96374; 99285; C1880; C1894; G0378; J1644; J2250; J2704; J3010; J7070; Q9966; C1769; C8919; J0330; J3475; J7030; J7512; J7517; P9016

== ENCOUNTER 2018-09-11 16:13 | Inpatient (IN) | payer MEDICARE, OTHER ==
[~2018-09-11] VITALS: Ht 160 cm; Wt 72.9 kg
[~2018-09-11 16:13] MED LIST changes: -CYAN100T PO; +CYAN100T2 PO; +ERGO500018 PO; +FURO40TA6 PO; +LOPE2CAP PO; +POTA20TA37 PO; +POTA20TA6 PO; +PRED5TAB PO; +PREG50CA PO
--- NOTE | 2018-09-11 17:02 | NUR ---
PT BIB [facility] INABILTY TO WALK FOR LAST FEW DAYS AND ALSO INABILTY TO TALK PER . PT ABLE TO CONVERSE AND IS A+O X 3. PT REPOERS HER ONLY COMPLAINT WEAKNESS. PT WAS HERE [facility] IN THE MONTH FOR DVT IN [facility]. PT ON MONITOR. PT SEEN BY ROSELIA HOLCOMB.
[2018-09-11] MEDS ORDERED: MAGN400T7 PO (17:15)
[2018-09-11] MEDS ORDERED: ASCO500T8 PO (17:15)
[2018-09-11 17:30] LABS: ALBUMIN 3.2 g/dL (3.4-5.0); ANION GAP 8 mmol/L (5-15); CHLORIDE 117 mmol/L (98-107)
[2018-09-11 17:36] LABS: ALANINE AMINOTRANSFERASE 16 U/L (12-78); ALKALINE PHOSPHATASE 53 U/L (45-117); BILIRUBIN,TOTAL 0.3 mg/dL (0.2-1.0); CREATININE 3.13 mg/dL (0.55-1.02); TOTAL PROTEIN 5.7 g/dL (6.4-8.2); TROPONIN I 0.057 ng/mL (0.000-0.045)
[2018-09-11 17:41] LABS: BASOPHILS # (AUTO) 0.01 x10^3/uL (0-0.1); BASOPHILS % (AUTO) 0 % (0-1); CALCIUM 14.6 mg/dL (8.5-10.1); EOSINOPHILS # (AUTO) 0.08 x10^3/uL (0-0.4); EOSINOPHILS % (AUTO) 1 % (1-7); LYMPHOCYTES # (AUTO) 0.39 x10^3/uL (1-3.4); LYMPHOCYTES % (AUTO) 6 % (22-44); MD NO; MEAN CORPUSCULAR HEMOGLOBIN 29.8 pg (27.0-34.8); MEAN CORPUSCULAR HGB CONC 32.7 g/dL (32.4-35.8); MEAN PLATELET VOLUME 10.3 fL (7.4-10.4); MONOCYTES # (AUTO) 0.36 x10^3/uL (0.2-0.8); MONOCYTES % (AUTO) 5 % (2-9); NEUTROPHILS # (AUTO) 5.75 x10^3/uL (1.8-6.8); NEUTROPHILS % (AUTO) 87 % (42-75); PLATELET COUNT 122 x10^3/uL (130-400); RED BLOOD COUNT 2.91 x10^6/uL (3.82-5.3); RED CELL DISTRIBUTION WIDTH 15.5 % (9.6-15.2)
[2018-09-11] MEDS ORDERED: SODIUM CHLORIDE 0.9% 1,000 ML IV ONE (17:51)
[2018-09-11] MEDS ORDERED: SODIUM CHLORIDE 0.9% 1,000ML IVBOLUS ONE (18:00)
[2018-09-11] MEDS ORDERED: SODIUM CHLORIDE FLUSH 10ML SYR IVF ONE (18:00)
--- NOTE | 2018-09-11 18:13 | NUR ---
LUNCH RN: MEDICATION ORDERED FROM PHARM. LAB AT BEDSIDE FOR COLLECTION. WILL CONTINUE TO MONITOR.
[2018-09-11 18:18] LABS: MICROSCOPIC AUTO
[2018-09-11 18:19] LABS: CULTURE INDICATED? NO
[2018-09-11] MEDS ORDERED: CALCITONIN SALMON 200 UNITS/ML, 2ML SQ ONE (18:30)
[2018-09-11] MEDS ORDERED: CEFTRIAXONE PMX 1GM/50ML 50 ML ONE (19:26)
--- NOTE | 2018-09-11 19:29 | NUR ---
PROCALCITONIN AND ANTIBIOTICS REQUESTED OF DR. SAWYER FOR THE CXR SUGGESTING PNEUMONIA. BLOOD CULTURES X 2 WERE DRAWN ALREADY.
[2018-09-11] MEDS ORDERED: CEFTRIAXONE PMX 1GM/50ML 50 ML IVPB ONE (19:30)
[2018-09-11] MEDS ORDERED: SODIUM CHLORIDE FLUSH 10ML SYR IVF PRN (19:30)
[2018-09-11] MEDS ORDERED: SODIUM CHLORIDE 0.9% 1,000 ML IV SCH (19:44)
[2018-09-11] MEDS ORDERED: HYDROmorphone 2 MG/ML, 1ML IVPush PRN (20:00)
[2018-09-11] MEDS ORDERED: ACETAMINOPHEN 325 MG TABLET PO PRN (20:00)
[2018-09-11] MEDS ORDERED: hydrALAzine 20 MG/ML, 1ML IVPush PRN (20:00)
[2018-09-11] MEDS ORDERED: PROMETHAZINE 25 MG/ML, 1ML IM PRN (20:00)
[2018-09-11] MEDS ORDERED: FAMOTIDINE 20 MG/2 ML IVPush SCH (20:00)
--- NOTE | 2018-09-11 20:00 | NUR ---
PT HAD REPORTED TO HAVE URINATED SO IN THE PROCESS OF CLEANING HER UP, DARK STOOL WAS NOTICED AND A FECAL OCCULT TEST DONE AT BEDSIDE WITH DR. SAWYER. FECAL OCCULT WAS SLIGHTLY POSITIVE.
[2018-09-11] MEDS ORDERED: FUROSEMIDE 40 MG/4 ML IV SCH (20:30)
[2018-09-11] MEDS ORDERED: BISACODYL 10 MG SUPP PR PRN (20:30)
[2018-09-11] MEDS ORDERED: PAMIDRONATE 30 MG in SODIUM CHLORIDE 0.9% 250 ML IV ONE (20:30)
--- NOTE | 2018-09-11 20:39 | NUR ---
CALL MADE TO DR. JURADO FOR CT OF THE HEAD DUE TO CONFUSION. PT DENIES DOBBS. CT HEAD TO BE DONE PRIOR TO TRANSFER TO CCU.
[2018-09-11 20:42] LABS: TROPONIN I 0.069 ng/mL (0.000-0.045)
[2018-09-11] MEDS ORDERED: PAMIDRONATE IV ONE (21:00)
[2018-09-11] MEDS ORDERED: SODIUM CHLORIDE 0.9% IV ONE (21:00)
[2018-09-11] MEDS: METOPROLOL TARTRATE 50 MG TABLET PO SCH (21:49)
[2018-09-12 03:59] LABS: BASOPHILS # (AUTO) 0.01 x10^3/uL (0-0.1); BASOPHILS % (AUTO) 0 % (0-1); EOSINOPHILS # (AUTO) 0.02 x10^3/uL (0-0.4); EOSINOPHILS % (AUTO) 0 % (1-7); LYMPHOCYTES # (AUTO) 0.74 x10^3/uL (1-3.4); LYMPHOCYTES % (AUTO) 11 % (22-44); MD NO; MEAN CORPUSCULAR HEMOGLOBIN 29.1 pg (27.0-34.8); MEAN CORPUSCULAR HGB CONC 32.3 g/dL (32.4-35.8); MEAN CORPUSCULAR VOLUME 90.1 fL (80-100); MEAN PLATELET VOLUME 10.4 fL (7.4-10.4); MONOCYTES # (AUTO) 0.61 x10^3/uL (0.2-0.8); MONOCYTES % (AUTO) 9 % (2-9); NEUTROPHILS % (AUTO) 80 % (42-75); PLATELET COUNT 108 x10^3/uL (130-400); RED BLOOD COUNT 2.56 x10^6/uL (3.82-5.3); RED CELL DISTRIBUTION WIDTH 15.1 % (9.6-15.2)
[2018-09-12 04:07] LABS: ANION GAP 6 mmol/L (5-15); CALCIUM 13.3 mg/dL (8.5-10.1); CHLORIDE 121 mmol/L (98-107)
[2018-09-12 04:10] LABS: TROPONIN I 0.044 ng/mL (0.000-0.045)
[2018-09-12] MEDS ORDERED: PAMIDRONATE 3 MG/ML, 10ML IV ONE (08:30)
[2018-09-12] MEDS: SODIUM CHLORIDE 0.45% 1,000 ML IV SCH ×3 (08:38→20:41)
[2018-09-12] MEDS ORDERED: PAMIDRONATE IV ONE (09:00)
[2018-09-12] MEDS ORDERED: SODIUM CHLORIDE 0.9% IV ONE (09:00)
[2018-09-12] MEDS: CALCITONIN SALMON 200 UNITS/ML, 2ML SQ SCH ×2 (09:23→21:42)
[2018-09-12] MEDS: METOPROLOL TARTRATE 50 MG TABLET PO SCH ×3 (09:23→21:00)
[2018-09-12 09:39] LABS: ABSOLUTE RETICS # 0.064 x10^6/uL (0.5-2.5); RED BLOOD COUNT 2.63 x10^6/uL (3.82-5.3); RETICULOCYTE COUNT % 2.41 % (0.5-1.5)
[2018-09-12] MEDS ORDERED: PHARMACY MAY ADJ FOR RENAL FX MC PRN (11:30)
[2018-09-12] MEDS: PANTOPRAZOLE 40 MG IV IVPush SCH ×2 (12:11→23:25)
[2018-09-12 12:28] LABS: OCCULT BLOOD POSITIVE (NEGATIVE)
[2018-09-12 13:34] VITALS: BP_SYST 124; BP_SYST 151; BP_DIAS 84; BP_DIAS 85
[2018-09-12] MEDS: CEFTRIAXONE PMX 1GM/50ML 50 ML IV SCH (16:05)
[2018-09-12 19:02] VITALS: BP 173/92
[2018-09-12] MEDS ORDERED: SODIUM CHLORIDE 0.9% 1,000 ML IV SCH (19:44)
[2018-09-13 01:54] VITALS: BP 161/96
[2018-09-13] MEDS: SODIUM CHLORIDE 0.45% 1,000 ML IV SCH (03:06)
[2018-09-13 06:55] VITALS: BP 153/80
[2018-09-13 07:04] LABS: ALBUMIN 2.6 g/dL (3.4-5.0); ANION GAP 8 mmol/L (5-15); CALCIUM 10.4 mg/dL (8.5-10.1); CHLORIDE 118 mmol/L (98-107); CREATININE 2.62 mg/dL (0.55-1.02)
[2018-09-13 07:07] LABS: ALANINE AMINOTRANSFERASE 14 U/L (12-78); ALKALINE PHOSPHATASE 41 U/L (45-117); BILIRUBIN,TOTAL 0.4 mg/dL (0.2-1.0); TOTAL PROTEIN 4.6 g/dL (6.4-8.2)
[2018-09-13] MEDS: CALCITONIN SALMON 200 UNITS/ML, 2ML SQ SCH (08:20)
[2018-09-13] MEDS: METOPROLOL TARTRATE 50 MG TABLET PO SCH (08:27)
[2018-09-13 08:39] VITALS: BP 126/82
[2018-09-13 10:41] LABS: MEAN CORPUSCULAR HGB CONC 32.1 g/dL (32.4-35.8); MEAN CORPUSCULAR VOLUME 90.3 fL (80-100); RED BLOOD COUNT 2.41 x10^6/uL (3.82-5.3); RED CELL DISTRIBUTION WIDTH 15.6 % (9.6-15.2)
[2018-09-13 10:46] LABS: BASOPHILS % (AUTO) 0 % (0-1); EOSINOPHILS % (AUTO) 0 % (1-7); LYMPHOCYTES # (AUTO) 0.12 x10^3/uL (1-3.4); LYMPHOCYTES % (AUTO) 2 % (22-44); MD MORPH REVIEW ONLY; MEAN PLATELET VOLUME 9.5 fL (7.4-10.4); MONOCYTES # (AUTO) 0.03 x10^3/uL (0.2-0.8); MONOCYTES % (AUTO) 0 % (2-9); NEUTROPHILS # (AUTO) 7.61 x10^3/uL (1.8-6.8); NEUTROPHILS % (AUTO) 98 % (42-75); PLATELET COUNT 69 x10^3/uL (130-400)
[2018-09-13 11:04] VITALS: BP 124/80
[2018-09-13] MEDS: POTASSIUM CHLORIDE 10 MEQ in SODIUM CHLORIDE 0.45% 1,000 ML IV SCH (11:05)
[2018-09-13 11:09] LABS: ACANTHOCYTES 1+; OVALOCYTES 1+
[2018-09-13 11:10] LABS: ANISOCYTOSIS 1+
[2018-09-13 11:12] LABS: TEAR DROPS 1+
[2018-09-13 11:15] LABS: <PLATELET ESTIMATE> DECREASED
[2018-09-13 11:16] LABS: <PLT MORPHOLOGY> NORMAL PLT MORPH
[2018-09-13] MEDS: PANTOPRAZOLE 40 MG IV IVPush SCH ×2 (11:53→23:08)
[2018-09-13 13:13] VITALS: BP 127/82
[2018-09-13] MEDS: CEFTRIAXONE PMX 1GM/50ML 50 ML IV SCH (14:31)
[2018-09-13] MEDS ORDERED: ZOSYN PER PHARMACY MC PRN (16:00)
[2018-09-13 17:00] LABS: AMPHETAMINE SCREEN, URINE Negative (Negative); BARBITURATE SCREEN, URINE Negative (Negative); BENZODIAZEPINE SCREEN, URINE Negative (Negative); CANNABINOID SCREEN, URINE Negative (Negative); COCAINE SCREEN, URINE Negative (Negative); METHADONE SCREEN, URINE Negative (Negative); OPIATE SCREEN, URINE Negative (Negative)
[2018-09-13] MEDS: MEROPENEM 500 MG in SODIUM CHLORIDE 0.9% 100 ML IV SCH (18:54)
[2018-09-13 19:29] VITALS: BP 127/79
[2018-09-13] MEDS: LINEZOLID PMX 600MG/300ML 300 ML IV SCH (20:58)
[2018-09-14] VITALS (7 sets, daily range): BP systolic 141–163; BP diastolic 63–94
[2018-09-14] MEDS: MEROPENEM 500 MG in SODIUM CHLORIDE 0.9% 100 ML IV SCH (04:06)
[2018-09-14 06:07] LABS: CHLORIDE 117 mmol/L (98-107)
[2018-09-14 06:14] LABS: ALBUMIN 2.2 g/dL (3.4-5.0); ANION GAP 10 mmol/L (5-15); CALCIUM 9.1 mg/dL (8.5-10.1)
[2018-09-14 06:26] LABS: MEAN CORPUSCULAR HEMOGLOBIN 29.7 pg (27.0-34.8); MEAN CORPUSCULAR HGB CONC 33.1 g/dL (32.4-35.8); MEAN CORPUSCULAR VOLUME 89.5 fL (80-100); RED BLOOD COUNT 2.21 x10^6/uL (3.82-5.3); RED CELL DISTRIBUTION WIDTH 15.6 % (9.6-15.2)
[2018-09-14 06:48] LABS: BASOPHILS # (AUTO) 0.01 x10^3/uL (0-0.1); BASOPHILS % (AUTO) 0 % (0-1); EOSINOPHILS # (AUTO) 0.13 x10^3/uL (0-0.4); EOSINOPHILS % (AUTO) 2 % (1-7); LYMPHOCYTES # (AUTO) 0.22 x10^3/uL (1-3.4); LYMPHOCYTES % (AUTO) 4 % (22-44); MD SCAN; MEAN PLATELET VOLUME 10.9 fL (7.4-10.4); MONOCYTES # (AUTO) 0.13 x10^3/uL (0.2-0.8); MONOCYTES % (AUTO) 2 % (2-9); NEUTROPHILS # (AUTO) 5.21 x10^3/uL (1.8-6.8); NEUTROPHILS % (AUTO) 91 % (42-75); PLATELET COUNT 64 x10^3/uL (130-400)
[2018-09-14] MEDS ORDERED: POTASSIUM CHLORIDE 20 MEQ in SODIUM CHLORIDE 0.9% 250 ML IV ONE (11:30)
[2018-09-14] MEDS: LINEZOLID PMX 600MG/300ML 300 ML IV SCH (13:13)
--- NOTE | 2018-09-14 14:28 | NUR ---
YONG RECOMMENDS: NPO WITH ALTERNATE SOURCE OF NUTRITION Bee Sheet posted in patient room Addendum: 09/14/18 at 1431 by Ольга BRADFORD Amended: Links added.
[2018-09-14] MEDS: CEFTRIAXONE PMX 1GM/50ML 50 ML IV SCH (17:55)
[2018-09-14] MEDS: PANTOPRAZOLE 40 MG IV IVPush SCH (17:58)
[2018-09-14 18:11] LABS: ANTI-NUCLEAR ANTIBODY PATTERN SSA(Ro)
[2018-09-14] MEDS: POTASSIUM CHLORIDE 10 MEQ in SODIUM CHLORIDE 0.45% 1,000 ML IV SCH (18:27)
[2018-09-14] MEDS: DOXYCYCLINE 100 MG in DEXTROSE 5% 250 ML IV SCH (19:40)
[2018-09-15 01:09] VITALS: BP 156/79
[2018-09-15 05:56] LABS: ALBUMIN 2.2 g/dL (3.4-5.0); ANION GAP 11 mmol/L (5-15); CALCIUM 8.6 mg/dL (8.5-10.1); CHLORIDE 115 mmol/L (98-107)
[2018-09-15] MEDS: POTASSIUM CHLORIDE 10 MEQ in SODIUM CHLORIDE 0.45% 1,000 ML IV SCH ×2 (06:13→23:59)
[2018-09-15] MEDS: PANTOPRAZOLE 40 MG IV IVPush SCH ×2 (06:13→17:40)
[2018-09-15 06:27] LABS: MEAN CORPUSCULAR HEMOGLOBIN 29.9 pg (27.0-34.8); MEAN CORPUSCULAR HGB CONC 33.4 g/dL (32.4-35.8); MEAN CORPUSCULAR VOLUME 89.5 fL (80-100); RED CELL DISTRIBUTION WIDTH 14.9 % (9.6-15.2)
[2018-09-15] MEDS ORDERED: POTASSIUM CHLORIDE 20 MEQ TAB.ER.PRT PO ONE (07:00)
[2018-09-15 07:04] LABS: BASOPHILS # (AUTO) 0.02 x10^3/uL (0-0.1); BASOPHILS % (AUTO) 0 % (0-1); EOSINOPHILS # (AUTO) 0.06 x10^3/uL (0-0.4); EOSINOPHILS % (AUTO) 1 % (1-7); LYMPHOCYTES # (AUTO) 0.29 x10^3/uL (1-3.4); LYMPHOCYTES % (AUTO) 6 % (22-44); MD SCAN; MEAN PLATELET VOLUME 11.2 fL (7.4-10.4); MONOCYTES # (AUTO) 0.19 x10^3/uL (0.2-0.8); MONOCYTES % (AUTO) 4 % (2-9); NEUTROPHILS # (AUTO) 4.13 x10^3/uL (1.8-6.8); NEUTROPHILS % (AUTO) 88 % (42-75); PLATELET COUNT 63 x10^3/uL (130-400)
[2018-09-15 07:52] VITALS: BP 126/87
[2018-09-15] MEDS: DOXYCYCLINE 100 MG in DEXTROSE 5% 250 ML IV SCH ×2 (07:55→20:11)
[2018-09-15 13:45] VITALS: BP 167/78
[2018-09-15] MEDS: CEFTRIAXONE PMX 1GM/50ML 50 ML IV SCH (17:40)
[2018-09-15 19:49] VITALS: BP 169/82
[2018-09-16 01:50] VITALS: BP 122/81
[2018-09-16] MEDS: PANTOPRAZOLE 40 MG IV IVPush SCH ×2 (05:11→17:25)
[2018-09-16 05:26] LABS: ALANINE AMINOTRANSFERASE 11 U/L (12-78); ALBUMIN 2.3 g/dL (3.4-5.0); ANION GAP 11 mmol/L (5-15); CHLORIDE 118 mmol/L (98-107); CREATININE 2.04 mg/dL (0.55-1.02)
[2018-09-16 05:28] LABS: ALKALINE PHOSPHATASE 41 U/L (45-117); BILIRUBIN,TOTAL 0.3 mg/dL (0.2-1.0); TOTAL PROTEIN 4.4 g/dL (6.4-8.2)
[2018-09-16 05:31] LABS: MEAN CORPUSCULAR HEMOGLOBIN 29.5 pg (27.0-34.8); MEAN CORPUSCULAR HGB CONC 32.9 g/dL (32.4-35.8); MEAN CORPUSCULAR VOLUME 89.8 fL (80-100); RED BLOOD COUNT 2.67 x10^6/uL (3.82-5.3); RED CELL DISTRIBUTION WIDTH 15.1 % (9.6-15.2)
[2018-09-16 05:49] LABS: BASOPHILS # (AUTO) 0.02 x10^3/uL (0-0.1); BASOPHILS % (AUTO) 0 % (0-1); EOSINOPHILS # (AUTO) 0.06 x10^3/uL (0-0.4); EOSINOPHILS % (AUTO) 1 % (1-7); LYMPHOCYTES # (AUTO) 0.41 x10^3/uL (1-3.4); LYMPHOCYTES % (AUTO) 9 % (22-44); MD SCAN; MEAN PLATELET VOLUME 11.7 fL (7.4-10.4); MONOCYTES # (AUTO) 0.34 x10^3/uL (0.2-0.8); MONOCYTES % (AUTO) 7 % (2-9); NEUTROPHILS # (AUTO) 3.86 x10^3/uL (1.8-6.8); NEUTROPHILS % (AUTO) 82 % (42-75); PLATELET COUNT 62 x10^3/uL (130-400)
[2018-09-16 06:52] VITALS: BP 154/86
[2018-09-16] MEDS: DOXYCYCLINE 100 MG in DEXTROSE 5% 250 ML IV SCH ×2 (08:24→20:13)
--- NOTE | 2018-09-16 11:22 | NUR ---
REC: Ground diet with thin liquids; swallow precautions (orange sheet) posted in room Addendum: 09/16/18 at 1122 by Jes BRADFORD Amended: Links added.
[2018-09-16] MEDS: POTASSIUM CHLORIDE 10 MEQ in LACTATED RINGERS 1,000 ML IV SCH (11:49)
[2018-09-16 13:09] VITALS: BP 146/80
[2018-09-16] MEDS: CEFTRIAXONE PMX 1GM/50ML 50 ML IV SCH (17:25)
[2018-09-16 17:39] LABS: OCCULT BLOOD POSITIVE (NEGATIVE)
[2018-09-16 20:02] VITALS: BP 160/91
[2018-09-16] MEDS ORDERED: POTASSIUM CHLORIDE 20 MEQ TAB.ER.PRT PO ONE (20:30)
[2018-09-17 01:20] VITALS: BP 155/97
[2018-09-17] MEDS: POTASSIUM CHLORIDE 10 MEQ in LACTATED RINGERS 1,000 ML IV SCH (04:19)
[2018-09-17] MEDS: PANTOPRAZOLE 40 MG IV IVPush SCH (05:35)
[2018-09-17 06:33] LABS: ALBUMIN 2.3 g/dL (3.4-5.0); ANION GAP 12 mmol/L (5-15); CALCIUM 7.8 mg/dL (8.5-10.1); CHLORIDE 120 mmol/L (98-107)
[2018-09-17 06:38] LABS: ALANINE AMINOTRANSFERASE 10 U/L (12-78); ALKALINE PHOSPHATASE 44 U/L (45-117); BILIRUBIN,TOTAL 0.5 mg/dL (0.2-1.0); CREATININE 2.02 mg/dL (0.55-1.02); TOTAL PROTEIN 4.5 g/dL (6.4-8.2)
[2018-09-17 06:55] LABS: MEAN CORPUSCULAR HEMOGLOBIN 29.6 pg (27.0-34.8); MEAN CORPUSCULAR HGB CONC 33.3 g/dL (32.4-35.8); MEAN CORPUSCULAR VOLUME 88.9 fL (80-100); RED BLOOD COUNT 2.68 x10^6/uL (3.82-5.3); RED CELL DISTRIBUTION WIDTH 15.2 % (9.6-15.2)
[2018-09-17 07:12] LABS: BASOPHILS # (AUTO) 0.01 x10^3/uL (0-0.1); BASOPHILS % (AUTO) 0 % (0-1); EOSINOPHILS # (AUTO) 0.05 x10^3/uL (0-0.4); EOSINOPHILS % (AUTO) 1 % (1-7); LYMPHOCYTES # (AUTO) 0.38 x10^3/uL (1-3.4); LYMPHOCYTES % (AUTO) 9 % (22-44); MD SCAN; MONOCYTES # (AUTO) 0.35 x10^3/uL (0.2-0.8); MONOCYTES % (AUTO) 8 % (2-9); NEUTROPHILS # (AUTO) 3.62 x10^3/uL (1.8-6.8); NEUTROPHILS % (AUTO) 82 % (42-75); PLATELET COUNT 66 x10^3/uL (130-400)
[2018-09-17 07:52] VITALS: BP 164/96
[2018-09-17] MEDS: DOXYCYCLINE 100 MG in DEXTROSE 5% 250 ML IV SCH ×2 (08:21→19:57)
[2018-09-17 13:05] VITALS: BP 127/95
[2018-09-17] MEDS: SODIUM BICARBONATE 650 MG TABLET PO SCH ×2 (13:28→19:57)
[2018-09-17] MEDS: CEFTRIAXONE PMX 1GM/50ML 50 ML IV SCH (17:39)
[2018-09-17] MEDS: PANTOPROZOLE 40MG TABLET PO SCH (17:40)
[2018-09-17] MEDS ORDERED: ERGOCALCIFEROL 50,000 UNIT CAPSULE PO SCH (21:00)
[2018-09-17 21:39] VITALS: BP 156/90
[2018-09-18 00:55] VITALS: BP 142/72
[2018-09-18 05:18] LABS: CHLORIDE 120 mmol/L (98-107)
[2018-09-18 05:21] LABS: ALBUMIN 2.3 g/dL (3.4-5.0); ANION GAP 11 mmol/L (5-15); CALCIUM 7.7 mg/dL (8.5-10.1); CREATININE 1.92 mg/dL (0.55-1.02)
[2018-09-18] MEDS: PANTOPROZOLE 40MG TABLET PO SCH ×2 (05:51→18:05)
[2018-09-18 07:22] VITALS: BP 157/81
[2018-09-18] MEDS: SODIUM BICARBONATE 650 MG TABLET PO SCH ×2 (09:00→22:29)
[2018-09-18] MEDS: NEUTRA PHOS K 250 MG TABLET PO SCH ×3 (09:00→22:29)
[2018-09-18] MEDS: DOXYCYCLINE 100 MG in DEXTROSE 5% 250 ML IV SCH ×2 (09:31→22:29)
--- NOTE | 2018-09-18 12:21 | NUR ---
REC: Pureed diet with thin liquids, strict aspiration precautions; 1:1 assist for all meals, crush meds
[2018-09-18 13:45] VITALS: BP 143/81
[2018-09-18] MEDS: CEFTRIAXONE PMX 1GM/50ML 50 ML IV SCH (18:05)
[2018-09-18 19:27] VITALS: BP 144/78
[2018-09-19 00:41] VITALS: BP 148/94
[2018-09-19] MEDS: PANTOPROZOLE 40MG TABLET PO SCH ×2 (05:54→16:02)
[2018-09-19 07:20] VITALS: BP 146/96
[2018-09-19] MEDS: SODIUM BICARBONATE 650 MG TABLET PO SCH ×2 (09:04→20:49)
[2018-09-19] MEDS: NEUTRA PHOS K 250 MG TABLET PO SCH ×3 (09:04→20:49)
[2018-09-19] MEDS: DOXYCYCLINE 100 MG in DEXTROSE 5% 250 ML IV SCH ×2 (10:42→22:48)
[2018-09-19 12:45] VITALS: BP 165/84
[2018-09-19] MEDS: CEFTRIAXONE PMX 1GM/50ML 50 ML IV SCH (18:19)
[2018-09-19 19:03] VITALS: BP 155/82
[2018-09-20 00:42] VITALS: BP 148/80
[2018-09-20] MEDS: PANTOPROZOLE 40MG TABLET PO SCH ×2 (05:18→17:00)
[2018-09-20 06:08] LABS: ALBUMIN 2.4 g/dL (3.4-5.0); ANION GAP 13 mmol/L (5-15); CALCIUM 7.1 mg/dL (8.5-10.1); CHLORIDE 117 mmol/L (98-107)
[2018-09-20 06:09] LABS: CREATININE 2.01 mg/dL (0.55-1.02)
[2018-09-20 08:05] VITALS: BP 151/83
[2018-09-20] MEDS: NEUTRA PHOS K 250 MG TABLET PO SCH ×3 (09:00→21:41)
[2018-09-20] MEDS: SODIUM BICARBONATE 650 MG TABLET PO SCH ×2 (11:10→21:41)
[2018-09-20] MEDS: DOXYCYCLINE 100 MG in DEXTROSE 5% 250 ML IV SCH (11:12)
[2018-09-20 14:00] VITALS: BP_SYST 132
[2018-09-20 16:14] VITALS: BP 132/79
--- NOTE | 2018-09-20 16:25 | NUR ---
REC: NPO with NGT for now due to high risk of aspiration due to altered mental status Addendum: 09/20/18 at 1625 by Jes BRADFORD Amended: Links added.
[2018-09-20 21:00] VITALS: BP 139/92
[2018-09-20] MEDS: CEFTRIAXONE PMX 1GM/50ML 50 ML IV SCH (23:18)
[2018-09-21] MEDS: DOXYCYCLINE 100 MG in DEXTROSE 5% 250 ML IV SCH ×2 (00:01→12:07)
[2018-09-21 02:57] VITALS: BP 149/90
[2018-09-21] MEDS: PANTOPROZOLE 40MG TABLET PO SCH ×2 (05:15→16:38)
[2018-09-21 05:25] LABS: BASOPHILS # (AUTO) 0.01 x10^3/uL (0-0.1); BASOPHILS % (AUTO) 0 % (0-1); EOSINOPHILS # (AUTO) 0.11 x10^3/uL (0-0.4); EOSINOPHILS % (AUTO) 2 % (1-7); LYMPHOCYTES # (AUTO) 0.57 x10^3/uL (1-3.4); LYMPHOCYTES % (AUTO) 11 % (22-44); MD NO; MEAN CORPUSCULAR HEMOGLOBIN 29.1 pg (27.0-34.8); MEAN CORPUSCULAR HGB CONC 32.5 g/dL (32.4-35.8); MEAN CORPUSCULAR VOLUME 89.5 fL (80-100); MEAN PLATELET VOLUME 9.9 fL (7.4-10.4); MONOCYTES # (AUTO) 0.63 x10^3/uL (0.2-0.8); MONOCYTES % (AUTO) 12 % (2-9); NEUTROPHILS # (AUTO) 3.82 x10^3/uL (1.8-6.8); NEUTROPHILS % (AUTO) 74 % (42-75); PLATELET COUNT 123 x10^3/uL (130-400); RED CELL DISTRIBUTION WIDTH 15.5 % (9.6-15.2)
[2018-09-21 05:29] LABS: ALBUMIN 2.2 g/dL (3.4-5.0); ANION GAP 11 mmol/L (5-15); CALCIUM 6.9 mg/dL (8.5-10.1); CHLORIDE 121 mmol/L (98-107); CREATININE 2.06 mg/dL (0.55-1.02)
[2018-09-21 07:37] VITALS: BP 159/82
[2018-09-21] MEDS: NEUTRA PHOS K 250 MG TABLET PO SCH ×3 (09:00→22:13)
[2018-09-21] MEDS: SODIUM BICARBONATE 650 MG TABLET PO SCH ×2 (09:00→22:13)
[2018-09-21] MEDS: CALCIUM CARBONATE 500 MG TABLET PO SCH ×2 (09:30→22:13)
[2018-09-21] MEDS ORDERED: DEXTROSE 5% IV SCH (10:30)
[2018-09-21] MEDS: POTASSIUM CHLORIDE 20 MEQ PACKET PO SCH ×2 (10:30→22:13)
[2018-09-21] MEDS ORDERED: CALCIUM GLUCONATE IV SCH (10:30)
[2018-09-21 14:00] VITALS: BP 140/79
[2018-09-21 20:03] VITALS: BP 164/96
[2018-09-21] MEDS: CEFTRIAXONE PMX 1GM/50ML 50 ML IV SCH (23:03)
[2018-09-22] MEDS: DOXYCYCLINE 100 MG in DEXTROSE 5% 250 ML IV SCH ×2 (00:06→13:38)
[2018-09-22 00:26] VITALS: BP 143/79
[2018-09-22] MEDS: PANTOPROZOLE 40MG TABLET PO SCH ×2 (04:47→16:16)
[2018-09-22 06:19] LABS: CHLORIDE 120 mmol/L (98-107)
[2018-09-22 06:24] LABS: ALBUMIN 1.7 g/dL (3.4-5.0); ANION GAP 11 mmol/L (5-15); CALCIUM 6.4 mg/dL (8.5-10.1); CREATININE 2.01 mg/dL (0.55-1.02)
[2018-09-22 06:59] VITALS: BP 140/73
[2018-09-22] MEDS: NEUTRA PHOS K 250 MG TABLET PO SCH ×3 (09:00→21:27)
[2018-09-22] MEDS ORDERED: POTASSIUM CHLORIDE 40 MEQ in SODIUM CHLORIDE 0.9% 500 ML IV ONE (10:00)
[2018-09-22] MEDS: CALCIUM GLUCONATE IV SCH ×2 (10:20→22:45)
[2018-09-22] MEDS: DEXTROSE 5% IV SCH ×2 (10:20→22:45)
[2018-09-22 14:00] VITALS: BP 150/82
[2018-09-22] MEDS ORDERED: VANCOMYCIN PMX 1GM/200ML 200 ML IV ONE (14:00)
[2018-09-22] MEDS: CALCIUM CARBONATE 500 MG TABLET PO SCH ×2 (14:00→21:27)
[2018-09-22] MEDS: POTASSIUM CHLORIDE 20 MEQ PACKET PO SCH ×2 (14:00→21:27)
[2018-09-22] MEDS: SODIUM BICARBONATE 650 MG TABLET PO SCH ×2 (14:00→21:27)
[2018-09-22] MEDS: ONDANSETRON 2MG/ML, 2ML IVPush PRN (16:20)
[2018-09-22 18:17] LABS: ANION GAP 10 mmol/L (5-15); CALCIUM 6.8 mg/dL (8.5-10.1); CHLORIDE 118 mmol/L (98-107)
[2018-09-22 18:18] LABS: CREATININE 1.98 mg/dL (0.55-1.02)
[2018-09-22 18:38] VITALS: BP 157/83
[2018-09-22] MEDS: CEFTRIAXONE PMX 1GM/50ML 50 ML IV SCH (23:02)
[2018-09-23 00:03] VITALS: BP 139/81
[2018-09-23] MEDS: DOXYCYCLINE 100 MG in DEXTROSE 5% 250 ML IV SCH ×2 (01:48→13:04)
[2018-09-23] MEDS: ONDANSETRON 2MG/ML, 2ML IVPush PRN (01:58)
[2018-09-23] MEDS: PANTOPROZOLE 40MG TABLET PO SCH (02:11)
[2018-09-23 06:03] LABS: ALBUMIN 2.1 g/dL (3.4-5.0); ANION GAP 10 mmol/L (5-15); CALCIUM 7.3 mg/dL (8.5-10.1); CHLORIDE 114 mmol/L (98-107)
[2018-09-23 06:04] LABS: CREATININE 1.98 mg/dL (0.55-1.02)
[2018-09-23 08:01] VITALS: BP 158/71
[2018-09-23] MEDS: SODIUM BICARBONATE 650 MG TABLET PO SCH ×2 (09:00→21:51)
[2018-09-23] MEDS: POTASSIUM CHLORIDE 20 MEQ PACKET PO SCH ×2 (09:00→21:51)
[2018-09-23] MEDS: CALCIUM CARBONATE 500 MG TABLET PO SCH ×2 (09:00→21:51)
[2018-09-23] MEDS: NEUTRA PHOS K 250 MG TABLET PO SCH ×3 (09:00→21:51)
[2018-09-23] MEDS ORDERED: POTASSIUM CHLORIDE 40 MEQ in SODIUM CHLORIDE 0.9% 500 ML IV ONE (10:00)
[2018-09-23] MEDS ORDERED: CALCIUM GLUCONATE IV SCH ×2 (10:30)
[2018-09-23] MEDS ORDERED: DEXTROSE 5% IV SCH ×2 (10:30)
[2018-09-23] MEDS ORDERED: PROPOFOL 10 MG/ML, 20ML ONE (11:15)
[2018-09-23 12:27] VITALS: BP 133/80
[2018-09-23] MEDS: OMEPRAZOLE/SOD. BICARB. PACKET GT SCH (17:28)
[2018-09-23 20:00] VITALS: BP 137/86
[2018-09-23] MEDS: CEFTRIAXONE PMX 1GM/50ML 50 ML IV SCH (22:53)
[2018-09-24] MEDS: DOXYCYCLINE 100 MG in DEXTROSE 5% 250 ML IV SCH ×2 (01:42→13:49)
[2018-09-24 02:00] VITALS: BP 132/84
[2018-09-24] MEDS: OMEPRAZOLE/SOD. BICARB. PACKET GT SCH ×2 (05:56→16:59)
[2018-09-24 06:29] LABS: CALCIUM 7.1 mg/dL (8.5-10.1); CHLORIDE 115 mmol/L (98-107)
[2018-09-24 06:33] LABS: ANION GAP 11 mmol/L (5-15)
[2018-09-24 07:00] VITALS: BP 123/78
[2018-09-24] MEDS: SODIUM BICARBONATE 650 MG TABLET PO SCH ×2 (09:11→21:52)
[2018-09-24] MEDS: NEUTRA PHOS K 250 MG TABLET PO SCH ×3 (09:11→21:52)
[2018-09-24] MEDS: POTASSIUM CHLORIDE 20 MEQ PACKET PO SCH ×2 (09:12→21:53)
[2018-09-24] MEDS: CALCIUM CARBONATE 500 MG TABLET PO SCH ×2 (09:13→21:53)
[2018-09-24] MEDS ORDERED: FUROSEMIDE 20 MG/2 ML IV ONE (10:00)
[2018-09-24 15:47] VITALS: BP 128/72
[2018-09-24] MEDS: FUROSEMIDE 20 MG/2 ML IV SCH (17:00)
[2018-09-24 19:11] VITALS: BP 112/73
[2018-09-24] MEDS: CEFTRIAXONE PMX 1GM/50ML 50 ML IV SCH (22:37)
[2018-09-25 00:29] VITALS: BP 117/74
[2018-09-25] MEDS: DOXYCYCLINE 100 MG in DEXTROSE 5% 250 ML IV SCH ×2 (01:40→15:43)
[2018-09-25] MEDS: OMEPRAZOLE/SOD. BICARB. PACKET GT SCH (05:19)
[2018-09-25 05:52] LABS: ALBUMIN 1.9 g/dL (3.4-5.0); CHLORIDE 114 mmol/L (98-107)
[2018-09-25 05:54] LABS: CALCIUM 6.4 mg/dL (8.5-10.1); CREATININE 2.24 mg/dL (0.55-1.02)
[2018-09-25 06:11] LABS: ANION GAP 12 mmol/L (5-15)
[2018-09-25 08:51] VITALS: BP 97/58
[2018-09-25] MEDS: SODIUM BICARBONATE 650 MG TABLET PO SCH (09:57)
[2018-09-25] MEDS: CALCIUM CARBONATE 500 MG TABLET PO SCH (09:58)
[2018-09-25] MEDS: POTASSIUM CHLORIDE 20 MEQ PACKET PO SCH (09:58)
[2018-09-25] MEDS: FUROSEMIDE 20 MG/2 ML IV SCH ×2 (09:59→17:07)
[2018-09-25] MEDS: NEUTRA PHOS K 250 MG TABLET PO SCH ×2 (10:00→17:07)
[2018-09-25 12:45] VITALS: BP 124/68
[2018-09-25] MEDS ORDERED: SODIUM BICARBONATE 650 MG TABLET PO SCH (16:00)
[2018-09-25] MEDS ORDERED: FURO20TA3 PO (16:50)
[2018-09-25] MEDS ORDERED: MYCO500T3 PO (16:50)
[2018-09-25] MEDS ORDERED: CALC500T11 PO (16:50)
[2018-09-25] MEDS ORDERED: SODI650T PO (16:50)
[2018-09-25] MEDS ORDERED: OMEP1PAC GT (16:50)
[2018-09-25] MEDS ORDERED: PHOS250T3 PO (16:50)
[2018-09-25] MEDS ORDERED: POTA20TA6 PO (16:50)
== END 2018-09-25 17:25 | DRG 91 ==
LOC: ED 17:05 → EDIP 20:03 → CCU 21:03 → 4NOR 09-12 12:02 → 4EST 09-13 15:28
PROVIDERS: ADMIT Family Medicine; ATTEND Internal Medicine
PROC: 0T9B70Z Drainage of Bladder with Drainage Device, Via Natural or Artificial Opening (ICD-10-PCS; 2018-09-11)
PROC: 30233N1 Transfusion of Nonautologous Red Blood Cells into Peripheral Vein, Percutaneous Approach (ICD-10-PCS; principal; 2018-09-14)
PROC: 0DH63UZ Insertion of Feeding Device into Stomach, Percutaneous Approach (ICD-10-PCS; 2018-09-23)
PROC: 30233N1 Transfusion of Nonautologous Red Blood Cells into Peripheral Vein, Percutaneous Approach (ICD-10-PCS; 2018-09-25)
DX: G92 Toxic encephalopathy (principal); R53.2 Functional quadriplegia; N17.9 Acute kidney failure, unspecified; N18.4 Chronic kidney disease, stage 4 (severe); D62 Acute posthemorrhagic anemia; E87.0 Hyperosmolality and hypernatremia; E87.2 Acidosis; D68.62 Lupus anticoagulant syndrome; T45.8X5A Adverse effect of other primarily systemic and hematological agents, initial encounter; M32.14 Glomerular disease in systemic lupus erythematosus; E83.52 Hypercalcemia; I12.9 Hypertensive chronic kidney disease with stage 1 through stage 4 chronic kidney disease, or unspecified chronic kidney disease; Z88.6 Allergy status to analgesic agent; Z88.0 Allergy status to penicillin; Z88.2 Allergy status to sulfonamides; Z88.8 Allergy status to other drugs, medicaments and biological substances; Z91.018 Allergy to other foods; D63.1 Anemia in chronic kidney disease; D69.6 Thrombocytopenia, unspecified; E78.5 Hyperlipidemia, unspecified; E83.39 Other disorders of phosphorus metabolism; E83.51 Hypocalcemia; E86.9 Volume depletion, unspecified; E87.6 Hypokalemia; E87.8 Other disorders of electrolyte and fluid balance, not elsewhere classified; K21.9 Gastro-esophageal reflux disease without esophagitis; M79.7 Fibromyalgia; R13.10 Dysphagia, unspecified; R62.7 Adult failure to thrive; Z66 Do not resuscitate; Z74.01 Bed confinement status; Z82.3 Family history of stroke; Z86.718 Personal history of other venous thrombosis and embolism; Z90.710 Acquired absence of both cervix and uterus; Z92.21 Personal history of antineoplastic chemotherapy; Z93.1 Gastrostomy status; Z95.828 Presence of other vascular implants and grafts; Z99.3 Dependence on wheelchair; J01.00 Acute maxillary sinusitis, unspecified; Z79.899 Other long term (current) drug therapy; Y92.89 Other specified places as the place of occurrence of the external cause
CPT/HCPCS: 36415; 70450; 70551; 71045; 71250; 74176; 80048; 80053; 80069; 80307; 81001; 82140; 82164; 82272; 82306; 82330; 82397; 82436; 82533; 82550; 82570; 82652; 82728; 83540; 83550; 83605; 83615; 83735; 83970; 84100; 84133; 84145; 84155; 84156; 84165; 84166; 84300; 84439; 84443; 84484; 84550; 85014; 85018; 85025; 85045; 86038; 86850; 86900; 86923; 87040; 87081; 93005; 95816; 96361; 96365; 96372; 99291; B4087; G0378; J0696; J2020; J2185; J2405; J2704; J3480; J7060; J7070; 92522-GN; C9113; J0610; J0630; J1940; J2430; J3490; J7030; J7040; J7050; J7120; J7517; P9016

== ENCOUNTER 2018-09-25 19:51 | Inpatient (IN) | payer MEDICARE, OTHER ==
[~2018-09-25] VITALS: Ht 172.7 cm; Wt 74.5 kg
[~2018-09-25 19:51] MED LIST changes: +ASCO500T8 PO; +CALC500T11 PO; +MAGN400T7 PO; +OMEP1PAC GT; +PHOS250T3 PO; +SODI650T PO
--- NOTE | 2018-09-25 20:06 | NUR ---
[facility] TODAY WITH PO D/C MEDICATIONS AND PT NPO PER EMT. PT ALERT BUT NONVERBAL. MONITORS APPLIED, PROVIDED PT WITH WARM BLANKET, CALL LIGHT WITHIN REACH
--- NOTE | 2018-09-25 20:20 | NUR ---
PT RESTING ON EDNA HYL[place], MONITORS IN PLACE, CALL LIGHT WITHIN REACH.
--- NOTE | 2018-09-25 20:23 | NUR ---
[facility] NOT ANSWERING PHONE, MULTIPLE CALLS, NO ANSWERING MACHINE. [phone]
--- NOTE | 2018-09-25 20:59 | NUR ---
facility calls and states that the d.o.n. and Dr Gomez are refusing to take this pt back. Given 's phone number and Dr Rebollar calling her.
--- NOTE | 2018-09-25 21:19 | NUR ---
PT RESTING CALMLY, DENIES PAIN OR NEEDS, PROVIDED PT WITH WARM BLANKET, MONITORS IN PLACE, CALLLIGHT WITHIN REACH. AWAITING ROOM FOR ADMIT
--- NOTE | 2018-09-25 22:26 | NUR ---
PT RESTING CALMLY, DENIES NEEDS, CALL LIGHT WITHIN REACH
--- NOTE | 2018-09-25 22:59 | NUR ---
ATTEMPTED TO CALL REPORT TO LIB[facility] RUTH. RN TO CALL ME BACK
[2018-09-25 23:04] LABS: MEAN CORPUSCULAR HEMOGLOBIN 27.5 pg (27.0-34.8); MEAN CORPUSCULAR HGB CONC 30.9 g/dL (32.4-35.8); MEAN CORPUSCULAR VOLUME 88.8 fL (80-100); MEAN PLATELET VOLUME 9.8 fL (7.4-10.4); PLATELET COUNT 173 x10^3/uL (130-400); RED BLOOD COUNT 2.74 x10^6/uL (3.82-5.3); RED CELL DISTRIBUTION WIDTH 14.9 % (9.6-15.2)
[2018-09-25 23:12] LABS: ALBUMIN 2.1 g/dL (3.4-5.0); ANION GAP 12 mmol/L (5-15); CALCIUM 6.5 mg/dL (8.5-10.1); CHLORIDE 114 mmol/L (98-107); CREATININE 2.44 mg/dL (0.55-1.02)
[2018-09-25] MEDS ORDERED: [UNRECOGNIZED DRUG - REMARK] MC SCH (23:30)
[2018-09-25 23:37] LABS: BASOPHILS % (AUTO) 0 % (0-1); EOSINOPHILS # (AUTO) 0.19 x10^3/uL (0-0.4); EOSINOPHILS % (AUTO) 2 % (1-7); LYMPHOCYTES # (AUTO) 0.84 x10^3/uL (1-3.4); LYMPHOCYTES % (AUTO) 7 % (22-44); MD MORPH REVIEW ONLY; MONOCYTES # (AUTO) 1.36 x10^3/uL (0.2-0.8); MONOCYTES % (AUTO) 11 % (2-9); NEUTROPHILS # (AUTO) 9.59 x10^3/uL (1.8-6.8); NEUTROPHILS % (AUTO) 80 % (42-75)
[2018-09-25 23:38] LABS: ANISOCYTOSIS 1+
[2018-09-25 23:40] LABS: ACANTHOCYTES 1+; ECHINOCYTES 1+; HYPOCHROMIA 1+; OVALOCYTES 1+; TEAR DROPS 1+
[2018-09-25 23:41] LABS: <PLATELET ESTIMATE> ADEQUATE
[2018-09-25 23:42] LABS: LARGE PLATELETS 1+
[2018-09-25 23:51] VITALS: BP 115/66
[2018-09-26] VITALS (8 sets, daily range): BP systolic 92–114; BP diastolic 60–74
[2018-09-26 05:43] LABS: ANION GAP 11 mmol/L (5-15); CALCIUM 6.1 mg/dL (8.5-10.1); CHLORIDE 115 mmol/L (98-107); CREATININE 2.52 mg/dL (0.55-1.02)
[2018-09-26 05:46] LABS: MEAN CORPUSCULAR HEMOGLOBIN 29.5 pg (27.0-34.8); MEAN CORPUSCULAR HGB CONC 33.3 g/dL (32.4-35.8); MEAN CORPUSCULAR VOLUME 88.5 fL (80-100); MEAN PLATELET VOLUME 10.1 fL (7.4-10.4); PLATELET COUNT 145 x10^3/uL (130-400); RED CELL DISTRIBUTION WIDTH 14.9 % (9.6-15.2)
[2018-09-26] MEDS: OMEPRAZOLE 20 MG CAPSULE.DR PEG SCH ×2 (05:56→15:21)
[2018-09-26 06:14] LABS: MD YES
[2018-09-26 06:16] LABS: EOS#(MANUAL) 0.19 x10^3/uL (0.0-0.4); EOS% (MANUAL) 2 % (1-7); LYMPH#(MANUAL) 0.38 x10^3/uL (1-3.4); LYMPHS% (MANUAL) 4 % (22-44); SEG#(MANUAL) 9.02 x10^3/uL (1.8-6.8); SEGS% (MANUAL) 94 % (42-75)
[2018-09-26 06:17] LABS: <PLATELET ESTIMATE> ADEQUATE; ACANTHOCYTES 1+; ANISOCYTOSIS 1+; ECHINOCYTES 1+; HYPOCHROMIA 1+; OVALOCYTES 1+
[2018-09-26 06:18] LABS: <PLT MORPHOLOGY> NORMAL PLT MORPH
[2018-09-26] MEDS: MYCOPHENOLATE MOFETIL 200 MG/ML SUSP PEG SCH ×2 (08:42→21:19)
[2018-09-26] MEDS: FUROSEMIDE 10 MG/ML ORAL SOL PEG SCH (08:42)
[2018-09-26] MEDS ORDERED: SODIUM BICARBONATE 650 MG TABLET PO SCH (09:00)
[2018-09-26] MEDS ORDERED: CALCIUM GLUCONATE 4.6 MEQ in SODIUM CHLORIDE 0.9% 50 ML IV ONE (14:30)
[2018-09-26 17:08] LABS: CLOSTRIDIUM DIFFICILE ANTIGEN NEGATIVE; CLOSTRIDIUM DIFFICILE TOXIN NEGATIVE (Negative)
[2018-09-26] MEDS: SODIUM BICARBONATE 650 MG TABLET PEG SCH (21:18)
[2018-09-27 02:10] VITALS: BP 101/65
[2018-09-27] MEDS: OMEPRAZOLE 20 MG CAPSULE.DR PEG SCH (05:16)
[2018-09-27 08:01] VITALS: BP 105/56
[2018-09-27] MEDS: FUROSEMIDE 10 MG/ML ORAL SOL PEG SCH (08:37)
[2018-09-27] MEDS: MYCOPHENOLATE MOFETIL 200 MG/ML SUSP PEG SCH ×2 (08:37→20:20)
[2018-09-27] MEDS: SODIUM BICARBONATE 650 MG TABLET PEG SCH (08:40)
[2018-09-27 11:20] LABS: ANION GAP 12 mmol/L (5-15); CHLORIDE 117 mmol/L (98-107); CREATININE 2.76 mg/dL (0.55-1.02)
[2018-09-27 11:24] LABS: CALCIUM 5.9 mg/dL (8.5-10.1)
[2018-09-27 11:33] LABS: BASOPHILS # (AUTO) 0.07 x10^3/uL (0-0.1); BASOPHILS % (AUTO) 1 % (0-1); EOSINOPHILS # (AUTO) 0.24 x10^3/uL (0-0.4); EOSINOPHILS % (AUTO) 3 % (1-7); LYMPHOCYTES # (AUTO) 0.91 x10^3/uL (1-3.4); LYMPHOCYTES % (AUTO) 10 % (22-44); MD NO; MEAN CORPUSCULAR HEMOGLOBIN 30.2 pg (27.0-34.8); MEAN CORPUSCULAR HGB CONC 33.6 g/dL (32.4-35.8); MEAN CORPUSCULAR VOLUME 89.9 fL (80-100); MEAN PLATELET VOLUME 10.2 fL (7.4-10.4); MONOCYTES # (AUTO) 1.14 x10^3/uL (0.2-0.8); MONOCYTES % (AUTO) 13 % (2-9); NEUTROPHILS # (AUTO) 6.76 x10^3/uL (1.8-6.8); NEUTROPHILS % (AUTO) 74 % (42-75); PLATELET COUNT 147 x10^3/uL (130-400); RED BLOOD COUNT 2.65 x10^6/uL (3.82-5.3); RED CELL DISTRIBUTION WIDTH 14.9 % (9.6-15.2)
[2018-09-27 14:10] VITALS: BP 107/65
[2018-09-27] MEDS ORDERED: LOPERAMIDE 1 MG/5 ML, 10ML UDC PEG ONE (17:00)
[2018-09-27] MEDS ORDERED: DIPHENOXYLATE/ATROPINE ORAL SOL PO ONE (17:00)
[2018-09-27] MEDS: SODIUM BICARBONATE 650 MG TABLET PO SCH ×2 (17:01→20:21)
[2018-09-27] MEDS: NEUTRA PHOS K 250 MG TABLET PO SCH ×2 (17:02→20:20)
[2018-09-27 19:02] VITALS: BP 133/69
[2018-09-27] MEDS: CALCIUM CARBONATE 500 MG TABLET PO SCH (20:20)
[2018-09-27] MEDS: OMEPRAZOLE/SOD. BICARB. PACKET GT SCH (20:21)
[2018-09-28 02:10] VITALS: BP 130/60
[2018-09-28 05:54] LABS: CHLORIDE 119 mmol/L (98-107)
[2018-09-28 06:00] LABS: ANION GAP 13 mmol/L (5-15); CREATININE 2.98 mg/dL (0.55-1.02)
[2018-09-28] MEDS: OMEPRAZOLE/SOD. BICARB. PACKET GT SCH (06:00)
[2018-09-28 07:31] VITALS: BP 104/64
[2018-09-28] MEDS ORDERED: POTASSIUM CHLORIDE 20 MEQ PACKET PO SCH (09:00)
[2018-09-28] MEDS: MYCOPHENOLATE MOFETIL 200 MG/ML SUSP PEG SCH (09:34)
[2018-09-28] MEDS: NEUTRA PHOS K 250 MG TABLET PO SCH (09:34)
[2018-09-28] MEDS: SODIUM BICARBONATE 650 MG TABLET PO SCH (09:34)
[2018-09-28] MEDS: CALCIUM CARBONATE 500 MG TABLET PO SCH (09:34)
[2018-09-28] MEDS: FUROSEMIDE 10 MG/ML ORAL SOL PEG SCH (09:38)
[2018-09-28] MEDS ORDERED: DIPHENOXYLATE/ATROPINE ORAL SOL PEG ONE (11:00)
[2018-09-28] MEDS ORDERED: CALCIUM CARBONATE 500 MG TABLET PEG SCH (11:24)
[2018-09-28] MEDS ORDERED: OMEPRAZOLE/SOD. BICARB. PACKET PEG SCH (11:25)
[2018-09-28] MEDS ORDERED: NEUTRA PHOS K 250 MG TABLET PEG SCH (11:25)
[2018-09-28] MEDS ORDERED: SODIUM BICARBONATE 650 MG TABLET PEG SCH (11:26)
[2018-09-28] MEDS ORDERED: POTASSIUM CHLORIDE 20 MEQ PACKET PEG SCH (11:26)
[2018-09-28] MEDS ORDERED: CALC500T11 PEG (11:43)
[2018-09-28] MEDS ORDERED: PHOS250T3 PEG (11:43)
[2018-09-28] MEDS ORDERED: SODI650T PEG (11:43)
[2018-09-28] MEDS ORDERED: OMEP1PAC PEG (11:43)
[2018-09-28] MEDS ORDERED: MYCO200S2 PEG (11:43)
[2018-09-28] MEDS ORDERED: Pharmacy Instruction MC (11:43)
[2018-09-28] MEDS ORDERED: POTA20PA25 PEG (11:43)
[2018-09-28] MEDS ORDERED: FURO10SO PEG (11:43)
[2018-09-28 12:14] VITALS: BP 109/63
== END 2018-09-28 12:45 | DRG 640 ==
LOC: ED 20:02 → EDIP 22:23 → 4NOR 23:28
PROVIDERS: ADMIT Internal Medicine; ATTEND Internal Medicine
PROC: 30233N1 Transfusion of Nonautologous Red Blood Cells into Peripheral Vein, Percutaneous Approach (ICD-10-PCS; principal; 2018-09-26)
DX: E83.51 Hypocalcemia (principal); R53.2 Functional quadriplegia; G92 Toxic encephalopathy; E43 Unspecified severe protein-calorie malnutrition; D62 Acute posthemorrhagic anemia; D68.62 Lupus anticoagulant syndrome; E87.2 Acidosis; N18.4 Chronic kidney disease, stage 4 (severe); N17.9 Acute kidney failure, unspecified; J01.00 Acute maxillary sinusitis, unspecified; M32.14 Glomerular disease in systemic lupus erythematosus; Z66 Do not resuscitate; I12.9 Hypertensive chronic kidney disease with stage 1 through stage 4 chronic kidney disease, or unspecified chronic kidney disease; D63.8 Anemia in other chronic diseases classified elsewhere; E83.39 Other disorders of phosphorus metabolism; D69.6 Thrombocytopenia, unspecified; E78.5 Hyperlipidemia, unspecified; E87.6 Hypokalemia; E87.8 Other disorders of electrolyte and fluid balance, not elsewhere classified; K21.9 Gastro-esophageal reflux disease without esophagitis; M79.7 Fibromyalgia; R13.10 Dysphagia, unspecified; T45.8X5A Adverse effect of other primarily systemic and hematological agents, initial encounter; R62.7 Adult failure to thrive; Z74.01 Bed confinement status; Z79.899 Other long term (current) drug therapy; Z86.718 Personal history of other venous thrombosis and embolism; Z92.21 Personal history of antineoplastic chemotherapy; Z95.828 Presence of other vascular implants and grafts; Z99.3 Dependence on wheelchair; Z88.0 Allergy status to penicillin; Z88.2 Allergy status to sulfonamides; Z88.8 Allergy status to other drugs, medicaments and biological substances; Z93.1 Gastrostomy status; Y92.89 Other specified places as the place of occurrence of the external cause
CPT/HCPCS: 36415; 80048; 82040; 82330; 85014; 85018; 85025; 86850; 86900; 86923; 87324; 93005; 96374; G0378; J0610; P9016

== ENCOUNTER 2018-10-15 20:33 | Emergency (ER) | payer MEDICARE, OTHER ==
[~2018-10-15] VITALS: Ht 165.1 cm; Wt 75.2 kg
[~2018-10-15 20:33] MED LIST changes: +CALC500T11 PEG; +FURO10SO PEG; +MYCO200S2 PEG; +OMEP1PAC PEG; +PHOS250T3 PEG; +POTA20PA25 PEG; +Pharmacy Instruction MC; +SODI650T PEG
[2018-10-15 21:39] LABS: ANION GAP 14 mmol/L (5-15); CALCIUM 8.8 mg/dL (8.5-10.1); CHLORIDE 112 mmol/L (98-107); CREATININE 3.13 mg/dL (0.55-1.02); MEAN CORPUSCULAR HEMOGLOBIN 29.4 pg (27.0-34.8); MEAN CORPUSCULAR HGB CONC 31.7 g/dL (32.4-35.8); MEAN CORPUSCULAR VOLUME 92.8 fL (80-100); MEAN PLATELET VOLUME 7.3 fL (7.4-10.4); PLATELET COUNT 298 x10^3/uL (130-400); RED BLOOD COUNT 2.16 x10^6/uL (3.82-5.3); RED CELL DISTRIBUTION WIDTH 15.6 % (9.6-15.2)
[2018-10-15 21:48] LABS: MD YES
[2018-10-15 21:51] LABS: EOS#(MANUAL) 0.53 x10^3/uL (0.0-0.4); EOS% (MANUAL) 7 % (1-7); LYMPHS% (MANUAL) 8 % (22-44); MONOS#(MANUAL) 0.68 x10^3/uL (0.3-2.7); MONOS% (MANUAL) 9 % (2-9); SEGS% (MANUAL) 76 % (42-75)
[2018-10-15 21:52] LABS: ANISOCYTOSIS 1+
[2018-10-15 21:53] LABS: ECHINOCYTES 1+; HYPOCHROMIA 1+; OVALOCYTES 1+; POLYCHROMASIA 1+
[2018-10-15 21:54] LABS: ACANTHOCYTES 1+
[2018-10-15 21:55] LABS: <PLATELET ESTIMATE> ADEQUATE; <PLT MORPHOLOGY> NORMAL PLT MORPH
--- NOTE | 2018-10-15 22:23 | NUR ---
Blood started, verified with 2nd RN.
[2018-10-15 22:37] VITALS: BP 155/80
--- NOTE | 2018-10-15 22:38 | NUR ---
Blood infusing without incident. Pt remains on all monitors. VSS.
[2018-10-15 23:16] VITALS: BP 159/87
[2018-10-15 23:50] VITALS: BP 161/81
--- NOTE | 2018-10-15 23:52 | NUR ---
Blood transfusion complete. Arrangements being made for transport back to [facility].
[2018-10-16 00:27] VITALS: BP 157/87
--- NOTE | 2018-10-16 00:29 | NUR ---
Pt transferred, via ambulance, to [facility].
== END 2018-10-16 00:29 | disposition home or self-care (01) ==
LOC: ED 21:07
DX: D50.0 Iron deficiency anemia secondary to blood loss (chronic) (principal); I12.0 Hypertensive chronic kidney disease with stage 5 chronic kidney disease or end stage renal disease; N18.9 Chronic kidney disease, unspecified; E78.5 Hyperlipidemia, unspecified; K21.9 Gastro-esophageal reflux disease without esophagitis; Z86.718 Personal history of other venous thrombosis and embolism
CPT/HCPCS: 36415; 36430; 80048; 85025; 86850; 86900; 86923; 93005; 99285; P9016

== ENCOUNTER 2018-11-05 00:13 | Emergency (ER) | payer MEDICARE ==
[~2018-11-05] VITALS: Ht 162.6 cm; Wt 74.6 kg
--- NOTE | 2018-11-05 00:35 | NUR ---
BIB BY [facility] FROM [facility] FOR ABNORMAL LABS. PROVIDED PAPERWORK SHOWS HGB OF 6.9/HCT 21.6 FROM SAMPLE COLLECTED AT 0136AM 11/04/18 ON ARRIVAL APPEARS TO BE CHRONICALLY ILL (BED BOUND) BUT NOT ACUITELY ILL: SLIGHLY PALE, HR 98, 145/89 FSBS OBTAINED BY ORACLE DEVELOPER 98
[2018-11-05] MEDS ORDERED: POTA20PA25 PO (00:53)
--- NOTE | 2018-11-05 00:59 | NUR ---
LAB AT BEDSIDE-LABS OBTAINED
[2018-11-05] MEDS ORDERED: NAPH1POW2 PO/NG (01:12)
[2018-11-05] MEDS ORDERED: MICO25PO2 PO (01:12)
[2018-11-05 01:15] LABS: MEAN CORPUSCULAR HEMOGLOBIN 28.7 pg (27.0-34.8); MEAN CORPUSCULAR HGB CONC 32.1 g/dL (32.4-35.8); MEAN CORPUSCULAR VOLUME 89.5 fL (80-100); MEAN PLATELET VOLUME 7.7 fL (7.4-10.4); PLATELET COUNT 285 x10^3/uL (130-400); RED BLOOD COUNT 2.53 x10^6/uL (3.82-5.3); RED CELL DISTRIBUTION WIDTH 15.4 % (9.6-15.2)
--- NOTE | 2018-11-05 01:15 | NUR ---
CLARIFIED NECCESITY OF IVF PATIENT GETTING BLOOD (300ML) AND HAS COMPLICATED LUNG HX (ON 4L NC/ DAILYLASIX/RECEIVING DOXY FOR PNA/LEGS SWOLLEN)-PROVIDER WOULD LIKE FLUID CREATININE ELEVATED EMERGENCY MANAGEMENT SPECIALIST TO INFUSE ORDERED 500ML SLOWLY BLOOD CONSENT OBTAINED SPOKE TO DESHAUN KOENIG AT [facility] IN REGARD TO POTENTIAL TRANSFER BACK TO FACILITY AFTER TRANSFUSION. DESHAUN AGREEABLE TO TRANSFER/[facility] HAS NO TRANSPORTATION AVAILABLE. JUNIOR LINUX ADMINISTRATOR MADE AWARE- TO ARRANGE [facility] TRANSPORT
--- NOTE | 2018-11-05 01:16 | NUR ---
WITH BLOOD CONSENT-PATIENT UNABLE TO SIGN (POOR FINE MOTOR)-PATIENT PROVIDED VERBAL CONSENT. PROVIDER AT BEDSIDE-AGREEABLE
[2018-11-05 01:20] LABS: ALBUMIN 2.4 g/dL (3.4-5.0); ANION GAP 11 mmol/L (5-15); CALCIUM 8.7 mg/dL (8.5-10.1); CHLORIDE 110 mmol/L (98-107); CREATININE 3.37 mg/dL (0.55-1.02)
--- NOTE | 2018-11-05 01:27 | NUR ---
RECEIVED CALL FROM LAB FOR CRITICAL HEMATOCRIT OF 22.7-PROVIDER MADE AWARE HGB 7.3 PLAN TO TRANSFUSE 1 UNIT PRBC+FLUID BOLUS
[2018-11-05] MEDS ORDERED: SODIUM CHLORIDE 0.9% 1,000ML IVBOLUS ONE (01:30)
[2018-11-05 01:34] LABS: BASOPHILS # (AUTO) 0.02 x10^3/uL (0-0.1); BASOPHILS % (AUTO) 0 % (0-1); EOSINOPHILS # (AUTO) 0.39 x10^3/uL (0-0.4); EOSINOPHILS % (AUTO) 5 % (1-7); LYMPHOCYTES # (AUTO) 0.92 x10^3/uL (1-3.4); LYMPHOCYTES % (AUTO) 12 % (22-44); MD SCAN; MONOCYTES # (AUTO) 0.87 x10^3/uL (0.2-0.8); MONOCYTES % (AUTO) 11 % (2-9); NEUTROPHILS # (AUTO) 5.81 x10^3/uL (1.8-6.8); NEUTROPHILS % (AUTO) 73 % (42-75)
--- NOTE | 2018-11-05 02:14 | NUR ---
DESHAUN KOENIG AT [facility] CALLED TO ASK IN PIV COULD BE LEFT IN FOR USE A FACILITY. SHELL MOLDER CLARIFIED PERMISSION W/ MY ACOUSTICAL TILE CARPENTERS SUPERVISOR. PERMISSION GRANTED. TO LEAVE PIV IN FOR TRANPORT
[2018-11-05] MEDS ORDERED: DOXY50CA42 PO (02:30)
[2018-11-05] MEDS ORDERED: VANC250C12 PO (02:30)
[2018-11-05] MEDS ORDERED: [UNRECOGNIZED DRUG - CODE] PEG (02:30)
--- NOTE | 2018-11-05 02:32 | NUR ---
BLOOD CONSENT SIGNED WITH TWO RNs ON PT VERBAL CONSENT. PT UNABLE TO SIGN DUE TO CONTRACTURES. CONSENT PLACED ON CHART. PURPLE FORM HAS BEEN SENT.
--- NOTE | 2018-11-05 02:37 | NUR ---
RECEIVED REPORT FROM MARTI KOENIG.
[2018-11-05 02:44] VITALS: BP 127/80
[2018-11-05 03:00] VITALS: BP 146/77
--- NOTE | 2018-11-05 03:06 | NUR ---
BLOOD HAS BEEN STARTED, PT TOLERATING WELL AT THIS TIME. WILL CONTINUE TO MONITOR. PT DOZING IN BED, ON ALL MONITORS.
[2018-11-05 03:38] VITALS: BP 134/79
[2018-11-05 04:15] VITALS: BP 135/85
--- NOTE | 2018-11-05 04:50 | NUR ---
BLOOD HAS FINISHED. PT TOLERATED WELL. ORDERED BOLUS INFUSING. PT REMAINS MOSTLY DOZING, AROUSABLE TO VERBAL STIMULI. PT VSS. WILL CONTINUE TO MONITOR. EXPECTING [facility] TRANSPORT TO [facility] AT 0530.
--- NOTE | 2018-11-05 05:30 | NUR ---
ems here to take pt back to [facility]. report has been given by Nazario wong to facility. pt packet and info given to EMS.
[2018-11-05 06:03] VITALS: BP 131/76
== END 2018-11-05 06:06 | disposition home or self-care (01) ==
LOC: ED 00:26
DX: I12.9 Hypertensive chronic kidney disease with stage 1 through stage 4 chronic kidney disease, or unspecified chronic kidney disease (principal); N18.3 Chronic kidney disease, stage 3 (moderate); D63.1 Anemia in chronic kidney disease; E78.5 Hyperlipidemia, unspecified; K21.9 Gastro-esophageal reflux disease without esophagitis; Z86.718 Personal history of other venous thrombosis and embolism
CPT/HCPCS: 36430; 80048; 82040; 82962; 85025; 86850; 86900; 86923; 99285; J7030; P9016